=== PATIENT | female | born 1945 | race Caucasian/White ===

== ENCOUNTER 2019-10-24 12:31 | Inpatient (IN) ==
[2019-10-24] MEDS ORDERED: METOPROLOL TARTRATE 1 MG/ML VIAL IV STA (13:06)
--- NOTE | 2019-10-24 13:29 | XRay Report ---
XR chest 1V portable HISTORY: fall COMPARISON: None. FINDINGS: No pneumothorax. No pleural effusions. The heart is mildly enlarged. There is a calcified a nd mildly tortuous thoracic aorta. Calcified granulomas are noted. Left basilar linear densities favo r subsegmental atelectasis. Otherwise the lungs are clear. No evidence for pulmonary edema. Surgical clips within the neck base suggestive of prior thyroidectomy. IMPRESSION: Mild cardiomegaly. No acute process within the chest. ACT 112: Negative or not required by law. Electronically signed by: Tan Roberson M.D. 10/24/2019 1:27 PM
--- NOTE | 2019-10-24 13:45 | Emergency Department Note ---
Impression & Plan Fall, Abrasion of scalp without infection, Atrial fibrillation with rapid ventricular response ED Provider Note Provider: Krishna Solorzano MD DATE OF SERVICE: 10/24/2019 CHIEF COMPLAINT: Fall HISTORY OF PRESENT ILLNESS: Patient is a 74-year-old female history of atrial fibrillation on Xarelto status post fall in February with resultant rotator cuff injuries and back issues. Patient states she lives in the [place] area and had follow-up in the outpatient setting and kyphoplasty several months ago. Recent left rotator cuff repair. States was some delayed with the onset of atrial fibrillation that was new for her. She denies symptoms at that time. Patient states since then she is been on Xarelto taking a dose this morning. 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 Patient is presenting today via ambulance after a fall leaving the office. Evidently she states she was backing out of the door and tripped and fell. Denies any presyncopal symptoms or chest pain or shortness of breath. She denies a sensation of palpitations. Patient denies any significant new injury to her upper extremities. Patient states she took her Xarelto this morning as well as her metoprolol as she is supposed to do. Patient is not been to this facility before. REVIEW OF SYSTEMS: A total of 10 review of systems was obtained and negative except as stated above in the HPI. PAST MEDICAL HISTORY: As noted above MEDICATIONS: Reviewed home medications with the patient with significant include metoprolol and Xarelto SOCIAL HISTORY: Lives at home in [place]. Non-smoker. PHYSICAL EXAM: GENERAL: alert and oriented in no acute distress on stretcher Head: normocephalic with a small right parieto-occipital subcutaneous hematoma and small abrasion without laceration noted. Does have bandaging on the left maxillary area from skin resection earlier this morning without evidence of active bleeding. EYES: No injection, discharge or icterus. PERRL NECK: Trachea midline. Supple. ENT: Mucous membranes pink and moist. LUNGS: Airway patent. No retractions. Breath sounds clear with good air entry bilaterally. HEART: Irregular tachycardic rate and rhythm. No chest wall tenderness ABDOMEN: Soft and non-tender, without guarding or rebound. SKIN: Acyanotic, warm, dry, with few scattered contusions on the upper extremities. EXTREMITIES: Chronic stasis changes with trace edema of the lower extremities. Patient does have bandaging applied on the right hand as well as the left distal forearm. She states is from squamous cell removal earlier today and denies significant pain or tenderness on exam here. Neurovascular intact in the bilateral fingers. Patient has some Steri-Strips overlying healing wounds on her left shoulder from prior rotator cuff repair but denies significant tenderness in this area. NEUROLOGICAL: No focal deficits. No aphasia. No facial droop or slurred speech. Ambulatory. EKG: Atrial fibrillation with rapid ventricular response 133 bpm. There is no acute ST segment elevation noted. No priors are available for comparison at this time. CONTINUOUS CARDIAC MONITORING: was ordered and showed a heart rate of 131 bpm in atrial fibrillation with rapid ventricular response Patient's hypertension was referred to the hospitalist [facility] 15. HOSPITAL COURSE: 1256 Patient was first seen and H&P performed. 1440 Patient reassessed and updated. Patient was resting comfortably in bed. Still tachycardic and diltiazem is pending administration. 1523 patient heart rate persists to be elevated. Discussed with her plan and options at this point. Will discuss with the hospitalist. Patient's laboratory studies and imaging reviewed. Differential includes Fracture, dislocation, contusion, intra-abdominal, pneumothorax, intrathoracic, intracranial, neurologic, compartment syndrome, rhabdomyolysis, as well as other pathologies. IMPRESSION/MEDICAL DECISION MAKING: Patient presents after what sounds are mechanical fall today. Is on a blood thinner. Pictures of the head and neck as well as chest were obtained. She denies significant pain from this other than a small wound on the right side of her head. This is noted without depth or foreign body needing sutures or exploration. CTs were likely negative for acute pathology. Chest x-ray is unr emarkable. She denies injury to the upper extremities but is bandaged on her left upper face as well as the bilateral upper extremities. Without significant tenderness here discussed the patient will proceed with further imaging at this time. Basic labs were obtained she noted be in atrial fibrillation rapid ventricular spots. Some delay given difficult IV access. Was given 5 mg of IV metoprolol initially without significant change. Given this switch to some diltiazem and diltiazem drip. Patient is already anticoagulated Xarelto. EKG without significant ST changes and she denies any chest pain at this time. No significant leukocytosis. Some mild anemia is noted without prior baseline. Some macrocytosis is noted. No significant electrolyte abnormality noted. Creatinine does not appear significantly altered from what I would expect her baseline to be although no prior lab values are noted here. Troponin is undetectable. No transaminitis. TSH is low but free T4 reports as within normal limits. Patient's heart rate began to improve on the Cardizem drip however still persisted routinely to be elevated about 110 and this later did escalate some. Increase diltiazem drip.. Discussed with the patient. We will have the [facility] hospitalist evaluate for further inpatient care. DIAGNOSIS: Fall, atrial fibrillation with rapid ventricular response DISPOSITION: Hospitalist will evaluate Patient was agreeable with this plan. Critical Care I have personally spent 42 minutes of critical care time in the direct management of this patient. This includes bedside care, interpretation of diagnostic studies, and testing, discussion with consultants, patient, and family members, and other required patient management activities. These 42 minutes is in excess of all separately billable procedures. Past Med/Surg History Social History Smoking Status: Never smoker Feels Safe at Home: Yes Allergies Allergies Allergy/AdvReac Type Severity Reaction Status Date / Time No Known Allergies Allergy Unverified 10/24/19 14:38 Home Meds Home Medications Medication Instructions Recorded Confirmed calcium carbonate-vitamin D3 1 tab PO DAILY 10/24/19 10/24/19 [Calcium 600 + D(3)] docusate sodium 100 mg PO BID 10/24/19 10/24/19 ergocalciferol (vitamin D2) 1,250 mcg PO WK 10/24/19 10/24/19 gabapentin 900 mg PO HS 10/24/19 10/24/19 levothyroxine 75 mcg PO DAILY 10/24/19 10/24/19 lisinopril 20 mg PO DAILY 10/24/19 10/24/19 metoprolol tartrate 25 mg PO BID 10/24/19 10/24/19 oxycodone 5 mg PO Q4H PRN 10/24/19 10/24/19 pantoprazole [Protonix] 40 mg PO BID 10/24/19 10/24/19 trazodone 50 mg PO HS 10/24/19 10/24/19 vitamin A 16,000 unit PO DAILY 10/24/19 10/24/19 Results & Data (ED) Vital Signs Vital Signs - 24 hr 10/24/19 12:35 10/24/19 12:44 10/24/19 12:45 Temperature 36.9 C Temperature Source Oral Pulse Rate 128 H 146 H 128 H Pulse Rate from SpO2 Sensor 121 H 116 H 111 H Pulse Rhythm Regular Pulse Strength Normal Respiratory Rate 27 H 17 16 Respiratory Effort / Characteristics Non-Labored Spontaneous SOB on Exertion Respiratory Depth Normal Respiratory Pattern Regular Blood Pressure 145/90 H 145/90 H Blood Pressure Mean 97 108 Blood Pressure Position Lying Pulse Oximetry 97 97 97 Oxygen Delivery Method Room Air Sepsis Recent Fever Within 48 Hours No Sepsis New/Unexplained Change in Mental Status N/A Sepsis Action Taken by Nursing No Action Required 10/24/19 13:00 10/24/19 13:05 10/24/19 13:15 Temperature Temperature Source Pulse Rate 132 H 134 H Pulse Rate from SpO2 Sensor 125 H 121 H Pulse Rhythm Irregular Pulse Strength Respiratory Rate 20 17 Respiratory Effort / Characteristics Respiratory Depth Respiratory Pattern Blood Pressure Blood Pressure Mean Blood Pressure Position Pulse Oximetry 97 96 Oxygen Delivery Method Room Air Sepsis Recent Fever Within 48 Hours Sepsis New/Unexplained Change in Mental Status Sepsis Action Taken by Nursing 10/24/19 13:30 10/24/19 13:45 10/24/19 13:59 Temperature Temperature Source Pulse Rate 143 H 124 H 142 H Pulse Rate from SpO2 Sensor Pulse Rhythm Pulse Strength Respiratory Rate 18 20 Respiratory Effort / Characteristics Respiratory Depth Respiratory Pattern Blood Pressure 140/109 H Blood Pressure Mean Blood Pressure Position Pulse Oximetry Oxygen Delivery Method Sepsis Recent Fever Within 48 Hours Sepsis New/Unexplained Change in Mental Status Sepsis Action Taken by Nursing 10/24/19 14:00 10/24/19 14:01 10/24/19 14:08 Temperature Temperature Source Pulse Rate 151 H 135 H 130 H Pulse Rate from SpO2 Sensor Pulse Rhythm Pulse Strength Respiratory Rate 20 15 12 Respiratory Effort / Characteristics Respiratory Depth Respiratory Pattern Blood Pressure 140/109 H 138/118 H Blood Pressure Mean 113 123 Blood Pressure Position Pulse Oximetry Oxygen Delivery Method Sepsis Recent Fever Within 48 Hours Sepsis New/Unexplained Change in Mental Status Sepsis Action Taken by Nursing 10/24/19 14:15 10/24/19 14:38 10/24/19 14:45 Temperature Temperature Source Pulse Rate 123 H 126 H 126 H Pulse Rate from SpO2 Sensor 122 H 110 H Pulse Rhythm Pulse Strength Respiratory Rate 15 28 H 15 Respiratory Effort / Characteristics Respiratory Depth Respiratory Pattern Blood Pressure Blood Pressure Mean Blood Pressure Position Pulse Oximetry 94 97 Oxygen Delivery Method Sepsis Recent Fever Within 48 Hours Sepsis New/Unexplained Change in Mental Status Sepsis Action Taken by Nursing 10/24/19 14:52 10/24/19 15:00 10/24/19 15:15 Temperature Temperature Source Pulse Rate 127 H 105 H 108 H Pulse Rate from SpO2 Sensor 116 H 114 H 108 H Pulse Rhythm Pulse Strength Respiratory Rate 24 15 39 H Respiratory Effort / Characteristics Respiratory Depth Respiratory Pattern Blood Pressure 163/114 H 122/95 Blood Pressure Mean 119 101 Blood Pressure Position Pulse Oximetry 98 98 97 Oxygen Delivery Method Sepsis Recent Fever Within 48 Hours Sepsis New/Unexplained Change in Mental Status Sepsis Action Taken by Nursing 10/24/19 15:16 Temperature Temperature Source Pulse Rate 129 H Pulse Rate from SpO2 Sensor 121 H Pulse Rhythm Pulse Strength Respiratory Rate 17 Respiratory Effort / Characteristics Respiratory Depth Respiratory Pattern Blood Pressure 141/90 H Blood Pressure Mean 107 Blood Pressure Position Pulse Oximetry 98 Oxygen Delivery Method Sepsis Recent Fever Within 48 Hours Sepsis New/Unexplained Change in Mental Status Sepsis Action Taken by Nursing Laboratory Data Result diagrams: 10/24/19 13:30 10/24/19 13:30 Lab Results 10/24/19 10/24/19 10/24/19 Range/Units 13:30 13:30 13:30 WBC 8.36 (4.8-10.8) K/uL RBC 3.48 L (4.2-5.4) M/uL Hgb 11.5 L (12.0-16.0) g/dL Hct 37.0 (37-47) % MCV 106.3 H (80-100) fL MCH 33.0 (25-34) pg MCHC 31.1 L (32-36) g/dL RDW Std Deviation 67.3 H (36.4-46.3) fL RDW Coeff of Jayy 17.5 H (11.5-14.5) % Plt Count 207 (130-400) K/uL MPV 10.0 (7.4-10.4) fL Immature Gran % (Auto) 3.9 % Neut % (Auto) 82.8 % Lymph % (Auto) 7.3 % Mckenzie % (Auto) 5.9 % Eos % (Auto) 0.0 % Baso % (Auto) 0.1 % Neut # (Auto) 6.92 H (1.4-6.5) K/uL Lymph # (Auto) 0.61 L (1.2-3.4) K/uL Mckenzie # (Auto) 0.49 (0.11-0.59) K/uL Eos # (Auto) 0.00 (0-0.5) K/uL Baso # (Auto) 0.01 (0-0.2) K/uL Immature Gran # (Auto) 0.33 H (0.00-0.02) K/uL Absolute Nucleated RBC 0.06 H (0-0) K/uL Nucleated RBC % (auto) 0.7 % PT 11.1 (9.0-12.0) Seconds INR 1.1 (0.9-1.1) Sodium 142 (136-145) mmol/L Potassium 5.0 (3.5-5.1) mmol/L Chloride 108 H (98-107) mmol/L Carbon Dioxide 27 (21-32) mmol/L Anion Gap 7.0 (3-11) BUN 62 H (7-18) mg/dl Creatinine 1.16 (0.6-1.2) mg/dl Est Cr Clr Drug Dosing 43.7 ml/min Est GFR ( Amer) 54.1 Est GFR (Non-Af Amer) 46.7 BUN/Creatinine Ratio 53.0 H (10-20) Glucose 159 H (70-99) mg/dl Calcium 8.8 (8.5-10.1) mg/dl Magnesium 2.9 H (1.8-2.4) mg/dl Total Bilirubin 0.4 (0.2-1) mg/dl AST 16 (15-37) U/L ALT 30 (12-78) U/L Alkaline Phosphatase 48 (45-117) U/L Troponin I < 0.015 (0-0.045) ng/ml Total Protein 5.8 L (6.4-8.2) gm/dl Albumin 2.9 L (3.4-5.0) gm/dl Globulin 2.9 (2.5-4.0) gm/dl Albumin/Globulin Ratio 1.0 (0.9-2) TSH 0.109 L (0.300-4.500) uIu/ml Free T4 0.87 (0.8-1.6) ng/dl Administered Medications Diltiazem HCl 125 mg/ Dextrose 125 mls @ 5 mls/hr IV .Q24H UNIQUE; Protocol Stop: 11/23/19 14:29 Last Titration: 10/24/19 16:00 Dose: 10 mg/hr, 10 mls/hr Documented by: [id number] Cosigned by: [id number] Titration: 10/24/19 15:00 Dose: 7.5 mg/hr, 7.5 mls/hr Documented by: [id number] Cosigned by: [id number] Admin: 10/24/19 14:52 Dose: 5 mg/hr, 5 mls/hr Documented by: [id number] Cosigned by: [id number] Discontinued Medications Diltiazem HCl (Diltiazem Hcl 5 Mg/Ml 5 Ml Vial) 10 mg IV NOW STA Stop: 10/24/19 14:20 Last Admin: 10/24/19 14:54 Dose: 10 mg Documented by: [id number] Cosigned by: [id number] Metoprolol Tartrate (Metoprolol Tartrate 1 Mg/Ml Vial) 5 mg IV NOW STA Stop: 10/24/19 13:07 Last Admin: 10/24/19 13:59 Dose: 5 mg Documented by: [id number] Miscellaneous (Stat Iv Infusion Titration Per Protocol) 1 ea N/A NOW STA Stop: 10/24/19 14:20 Last Admin: 10/24/19 15:22 Dose: 1 ea Documented by: [id number] Discharge Plan Visit Data Chief Complaint: Fall Stated Complaint: fall ED Provider: Krishna Solorzano Discharge Problem: Fall, Abrasion of scalp without infection, Atrial fibrillation with rapid ventricular response Forms Stand Alone Forms: [facility] Prescriptions Prescriptions: No Action vitamin A 8,000 unit Capsule 16,000 unit PO DAILY RF: 0 trazodone 50 mg Tablet 50 mg PO HS RF: 0 lisinopril 20 mg Tablet 20 mg PO DAILY RF: 0 levothyroxine 75 mcg Tablet 75 mcg PO DAILY RF: 0 pantoprazole [Protonix] 40 mg Tablet,Delayed Release (Dr/Ec) 40 mg PO BID RF: 0 docusate sodium 100 mg Capsule 100 mg PO BID RF: 0 gabapentin 300 mg Capsule 900 mg PO HS RF: 0 ergocalciferol (vitamin D2) 1,250 mcg (50,000 unit) Capsule 1,250 mcg PO WK RF: 0 oxycodone 5 mg Tablet 5 mg PO Q4H PRN (Reason: Pain) RF: 0 metoprolol tartrate 25 mg Tablet 25 mg PO BID RF: 0 calcium carbonate-vitamin D3 [Calcium 600 + D(3)] 600 mg(1,500mg) -400 unit Tablet 1 tab PO DAILY RF: 0 Discharge Problem: Fall Qualifiers: Encounter type: initial encounter Qualified Code(s): W19.XXXA - Unspecified fall, initial encounter
[2019-10-24 14:06] LABS: Basophils # (auto) 0.01 K/uL (0-0.2); Basophils % (auto) 0.1 %; Hemoglobin 11.5 g/dL (12.0-16.0); Immature Granulocytes # (auto) 0.33 K/uL (0.00-0.02); Immature Granulocytes % (auto) 3.9 %; Lymphocytes # (auto) 0.61 K/uL (1.2-3.4); Lymphocytes % (auto) 7.3 %; Mean Corpuscular Hgb Conc 31.1 g/dL (32-36); Mean Corpuscular Volume 106.3 fL (80-100); Monocytes # (auto) 0.49 K/uL (0.11-0.59); Monocytes % (auto) 5.9 %; Neutrophils # (auto) 6.92 K/uL (1.4-6.5); Neutrophils % (auto) 82.8 %; Nucleated RBC # (auto) 0.06 K/uL (0-0); Nucleated RBC % (auto) 0.7 %; Platelet Count 207 K/uL (130-400); RDW Coefficient of Variation 17.5 % (11.5-14.5); RDW Standard Deviation 67.3 fL (36.4-46.3); Red Blood Count 3.48 M/uL (4.2-5.4); White Blood Count 8.36 K/uL (4.8-10.8)
[2019-10-24 14:16] LABS: INR 1.1 (0.9-1.1); Prothrombin Time 11.1 Seconds (9.0-12.0)
[2019-10-24] MEDS ORDERED: STAT IV Infusion **Titration per Protocol STA (14:19)
[2019-10-24] MEDS ORDERED: dilTIAZem HCl 5 MG/ML 5 ML VIAL IV STA (14:19)
[2019-10-24 14:25] LABS: Alanine Aminotransferase 30 U/L (12-78); Albumin Level 2.9 gm/dl (3.4-5.0); Aspartate Aminotransferase 16 U/L (15-37); Blood Urea Nitrogen 62 mg/dl (7-18); Calcium 8.8 mg/dl (8.5-10.1); Carbon Dioxide 27 mmol/L (21-32); Chloride 108 mmol/L (98-107); Creatinine Clr Calc Pharmacy 43.7 ml/min; Est GFR (African American) 54.1; Est GFR (Non-African American) 46.7; Glucose 159 mg/dl (70-99); Magnesium 2.9 mg/dl (1.8-2.4); Sodium 142 mmol/L (136-145)
--- NOTE | 2019-10-24 14:32 | CT Scan Report ---
CT SCAN OF THE BRAIN WITHOUT IV CONTRAST CLINICAL HISTORY: Fall. COMPARISON STUDY: No priors. TECHNIQUE: Unenhanced axial CT scan of the brain is performed from the vertex to the skull base. A do se lowering technique was utilized adhering to the principles of ALARA. CT DOSE: 638.56 mGycm FINDINGS: Brain parenchyma: There are age-related involutional changes noting mild to moderate subcortical and periventricular microangiopathic change. There is no hemorrhage, mass effect, or evidence of acute t erritorial ischemia by CT criteria. Sepulveda-white matter differentiation is preserved. No extra-axial fl uid collection is seen. Ventricles, sulci, cisterns: Prominent secondary to involutional change. Intracranial vasculature: There is atherosclerotic calcification of the cavernous carotid and vertebr al arteries. Calvarium: The skeletal structures are osteopenic. There is no depressed calvarial fracture. An 8 mm osteoma arises from the left frontal calvarium on image #19. Soft tissues: There are right temporal and right parietal scalp contusions. Sinuses and mastoids: A 1.1 cm osteoma is noted in the right frontal sinus. The visualized paranasal sinuses are otherwise clear. The mastoid air cells are well pneumatized. Orbits: The bony orbits are grossly intact. There are bilateral ocular lens implants. IMPRESSION: There is no hemorrhage, mass effect, or evidence of acute territorial ischemia by CT rajwinder morrison. ACT 112: Negative or not required by law. Electronically signed by: Eren Nuñez M.D. 10/24/2019 2:30 PM
[2019-10-24 14:35] LABS: Alkaline Phosphatase 48 U/L (45-117); Bilirubin,Total 0.4 mg/dl (0.2-1); Globulin 2.9 gm/dl (2.5-4.0); Thyroid Stimulating Hormone 0.109 uIu/ml (0.300-4.500); Total Protein 5.8 gm/dl (6.4-8.2); Troponin I < 0.015 ng/ml (0-0.045)
--- NOTE | 2019-10-24 14:36 | CT Scan Report ---
CT SCAN OF THE CERVICAL SPINE CLINICAL HISTORY: Fall. COMPARISON STUDY: No priors. TECHNIQUE: CT scan of the cervical spine is performed from the skull base to the upper thoracic spine . Images are reviewed in the axial, sagittal, and coronal planes. IV contrast was not administered fo r this examination. A dose lowering technique was utilized adhering to the principles of ALARA. CT DOSE: 446.95 mGycm FINDINGS: Skeletal structures: The skeletal structures are osteopenic. There is no evidence of fracture or subl uxation involving the cervical spine. Vertebral body height is maintained. There is minimal anterolis thesis at C4-C5. Alignment is otherwise preserved. There is straightening of the cervical lordosis. A nterior osteophytes are seen in the lower cervical region. The odontoid process and lateral masses ar e intact. The atlantoaxial articulation is preserved noting productive degenerative change. The spino us processes appear intact. Mild facet arthropathy is noted in the lower cervical region. Intervertebral discs: Moderate disc space narrowing is seen at C5-C6, C6-C7, and C7-T1 with associate d endplate sclerosis. Central canal: Grossly patent. Soft tissues: The prevertebral and paraspinous soft tissues are within normal limits. There is athero sclerotic calcification of the carotid bulbs. The thyroid gland is atrophic. Surgical clips are seen in the lower neck. Calvarium: The visualized calvarium at the skull base appears intact. Brain parenchyma: Partially visualized brain parenchyma the skull base is within normal limits. Sinuses and mastoids: The visualized paranasal sinuses are clear. The mastoid air cells are well pneu matized. Lung apices: Clear as visualized. IMPRESSION: 1. There is no evidence of fracture or subluxation involving the cervical spine. 2. Osteopenia and spondylotic change as above. ACT 112: Negative or not required by law. Electronically signed by: Eren Nuñez M.D. 10/24/2019 2:35 PM
[2019-10-24 14:50] LABS: T4 Free Thyroxine 0.87 ng/dl (0.8-1.6)
[2019-10-24] MEDS: dilTIAZem HCL 125 MG in DEXTROSE 5% 100 ML IV SCH ×2 (14:52→23:08)
--- NOTE | 2019-10-24 16:20 | Electrocardiogram Report ---
Test Reason : Blood Pressure : / mmHG Vent. Rate : 133 BPM Atrial Rate : 144 BPM P-R Int : 118 ms QRS Dur : 070 ms QT Int : 302 ms P-R-T Axes : 000 -23 -47 degrees QTc Int : 449 ms Atrial flutter with variable A-V block Low voltage QRS Poor R wave progression, consider anterior VT vs. lead placement vs. LVH Abnormal ECG No previous ECGs available Confirmed by Tommy Partida ([id number]) on 10/24/2019 4:20:28 PM Referred By: REFERRED SELF Confirmed By:Tommy Partida
[2019-10-24] MEDS ORDERED: ACETAMINOPHEN 500 MG TAB PO STA (16:59)
--- NOTE | 2019-10-24 17:00 | History & Physical Report ---
Date of Service October 24, 2019 Assessment & Plan (1) Atrial fibrillation with rapid ventricular response: Pt is 74 y/o F with PMH HTN, A-fib on Xarelto, autoimmune hepatitis, h/o parathyroid surgery presented to ER with c/o fall. Pt was at outpatient [facility] dermatology clinic today getting Mohs surgery to left face and left arm today. When she was leaving she states she was using her buttocks to open door and lost balance and fell hitting her head. Denies any LOC. Denies any dizziness, palpitations, CP, SOB or other symptoms prior to fall. In ER found to be in a-fib RVR. initial HR 130's. She was given Lopressor 5mg IV, Cardizem 10mg IV and on Cardizem drip with rates varying 108-140. Pt asymptomatic. No leukocytosis, magnesium: 2.9. Negative troponin. TSH: 0.1, Free T4: 0.87 Will admit to tele Continue Cardizem drip Continue home dose metoprolol for now as pt reports Continue Xarelto Echo Will plan to decrease levothyroxine dose since TSH: 0.1 Follows with [facility]. Will try to get copy of records from their office Cardiology consult CBC, BMP, magnesium labs in AM (2) Fall: (3) Abrasion of scalp without infection: Fall prior to arrival. Denies symptoms prior to fall. CT head and C-spine negative in ER No other reported injuries Tylenol prn Fall precautions (4) HTN (hypertension): Continue lisinopril, lasix, metoprolol (5) Squamous cell carcinoma: (6) Status post Mohs surgery: S/P excision to right hand on 10/21/19. S/P Mohs procedure to left arm and left face on 10/24/2019 Continue Keflex Continue outpatient follow up with dermatology (7) Hypothyroidism: Reported parathyroid surgery and h/o nodules. Pt reports benign biopsy. TSH: 0.1, Free T4: 0.87 Will plan to decrease levothyroxine dose since TSH: 0.1 (8) Autoimmune hepatitis: Follows with GI in [place] Continue prednisone, mercaptopurine DVT Prophylaxis -Xarelto Full Code as per discussion with pt Follows with Toney Mcghee PA-C in [place] for routine care Pt was seen and care coordinated with Dr Durham. See addendum History of Present Illness Chief Complaint: Fall Primary Care Provider: Toney Gastelum PA-C Pt is 74 y/o F with PMH HTN, A-fib on Xarelto, autoimmune hepatitis, h/o parathyroid surgery presented to ER with c/o fall. Pt was at outpatient [facility] dermatology clinic today getting Mohs surgery to left face and left arm today. When she was leaving she states she was using her buttocks to open door and lost balance and fell hitting her head. Denies any LOC. Denies any dizziness, palpitations, CP, SOB or other symptoms prior to fall. Pt was referred to ER secondary to falling and hitting her head and being on Xarelto. In ER pt was found to be in A-fib RVR. Pt reports h/o A-fib x 6-8 months that was found pre-op. She reports recent left rotator cuff repair and recent kyphoplasty and states had elevated heart rates. She reports h/o elevated HR while being in a residential for rehab and had her meds adjusted (unsure of what medications) and at that time had dizziness causing a fall. Pt states since her medications have been adjusted and hasn't had dizziness or palpitations and when has been at outpatient dr offices her HR have been controlled. Pt follows with [facility] and states most recently her HR have been below 100. She does report a h/o nodules -she thinks to her parathyroid glands and reports had biopsy and parathyroid surgery with reported benign biopsy. Her PCP noted her TSH to be low approx 1 month ago and per pt since her HR was controlled was g oing to repeat labs in 1-2 months. Has pain to left shoulder from recent rotator cuff repair, denies any increased pain or other extremity pain from fall. C/O abrasion to right scalp from fall that was initially bleeding but bleeding controlled at this time. Having mild KIM after fall. Reports chronic BLE edema, seems a little more swollen today. Reports took her lasix this morning. Denies fever/chills, diaphoresis, N/V/D/C, dizziness, syncope, vision changes, neck pain, CP, SOB, orthopnea, palpitations, cough, sore throat, choking, otalgia, rhinorrhea, abdominal pain, paresthesias, weakness, extremity weakness, rashes, urinary symptoms. In ER pt CT head and C-spine negative. Her initial HR 130's. She was given Lopressor 5mg IV, Cardizem 10mg IV and on Cardizem drip with rates varying 108- 140. Pt asymptomatic. Allergies Allergy/AdvReac Type Severity Reaction Status Date / Time No Known Allergies Allergy Unverified 10/24/19 14:38 Home Medications Home Medications Medication Instructions Recorded Confirmed Type calcium carbonate-vitamin D3 1 tab PO DAILY 10/24/19 10/24/19 History [Calcium 600 + D(3)] cephalexin [Keflex] 500 mg PO BID 10/24/19 10/24/19 History docusate sodium 100 mg PO BID 10/24/19 10/24/19 History ergocalciferol (vitamin D2) 1,250 mcg PO WK 10/24/19 10/24/19 History furosemide [Lasix] 40 mg PO DAILY 10/24/19 10/24/19 History gabapentin 900 mg PO HS 10/24/19 10/24/19 History levothyroxine 75 mcg PO DAILY 10/24/19 10/24/19 History lisinopril 10 mg PO DAILY 10/24/19 10/24/19 History mercaptopurine 25 mg PO DAILY 10/24/19 10/24/19 History metoprolol tartrate 25 mg PO BID 10/24/19 10/24/19 History oxycodone 5 mg PO Q4H PRN 10/24/19 10/24/19 History pantoprazole [Protonix] 40 mg PO BID 10/24/19 10/24/19 History polyethylene glycol 3350 [Miralax] 17 g PO DAILY PRN 10/24/19 10/24/19 History prednisone 20 mg PO DAILY 10/24/19 10/24/19 History rivaroxaban [Xarelto] 20 mg PO DAILY 10/24/19 10/24/19 History trazodone 50 mg PO HS 10/24/19 10/24/19 History vitamin A 16,000 unit PO DAILY 10/24/19 10/24/19 History Past Med/Surg History Medical History (Updated 10/24/19 @ 17:18 by Caren Rajan PA-C) Atrial fibrillation Autoimmune hepatitis HTN (hypertension) Hypothyroidism Squamous cell carcinoma Surgical History (Updated 10/24/19 @ 17:06 by Caren Rajan PA-C) H/O kyphoplasty H/O repair of rotator cuff History of appendectomy History of hysterectomy History of parathyroid surgery Status post Mohs surgery 10/24/2019 - face, left arm Family History (Updated 10/24/19 @ 17:12 by Caren Rajan PA-C) Mother Abdominal aortic aneurysm Father Heart disease Other Lupus Thyroid disease Social History (Updated 10/24/19 @ 17:12 by Caren Rajan PA-C) Smoking Status: Never smoker Hx Alcohol Use: No Hx Substance Use: No Feels Safe at Home: Yes Review of Systems Review of Systems: All systems reviewed & are unremarkable except as noted in HPI & below Physical Exam Physical Exam: General: no distress, obese Head: normocephalic, right lateral scalp with abrasion without active bleeding Eyes: PERRL, EOM's intact, conjunctiva non-injected, anicteric ENT: normal inspection external ears, nose, mucous membranes moist Neck: supple, trachea midline, non-tender, ROM intact Lungs: clear, no respiratory distress, no wheezing/rhonchi/rales CV:Irregularly irregular, rates 110-136, no murmur appreciated, 2+ pretibial edema Abd: normal BS, soft, non-tender Ext: no cyanosis, no calf tenderness Neuro: A&O x 3, no focal deficits noted, normal affect Skin: warm, dry; left face with bulky dressing in place from Mohs procedure today, left arm with dressing in place from Mohs procedure today, left hand with JAIDA wrap in place from skin excision several days ago, JAIDA wrap has dried blood noted on outside of dressing from her scalp bleeding Results & Data Results & Data ([facility]) Vital Signs (Past 12 Hours) Vital Signs Temp Pulse Resp BP Pulse Ox 10/24/19 15:16 129 H 17 141/90 H 98 10/24/19 15:15 108 H 39 H 97 10/24/19 15:00 105 H 15 122/95 98 10/24/19 14:52 127 H 24 163/114 H 98 10/24/19 14:45 126 H 15 97 10/24/19 14:38 126 H 28 H 94 10/24/19 14:15 123 H 15 10/24/19 14:08 130 H 12 138/118 H 10/24/19 14:01 135 H 15 140/109 H 10/24/19 14:00 151 H 20 10/24/19 13:59 142 H 140/109 H 10/24/19 13:45 124 H 20 10/24/19 13:30 143 H 18 10/24/19 13:15 134 H 17 96 10/24/19 13:00 132 H 20 97 10/24/19 12:45 128 H 16 97 10/24/19 12:44 36.9 C 146 H 17 145/90 H 97 10/24/19 12:35 128 H 27 H 145/90 H 97 Laboratory Results Short CBC 10/24/19 10/24/19 Range/Units 13:30 13:30 WBC 8.36 (4.8-10.8) K/uL Hgb 11.5 L (12.0-16.0) g/dL Hct 37.0 (37-47) % Plt Count 207 (130-400) K/uL BUN 62 H (7-18) mg/dl BMP 10/24/19 13:30 Sodium 142 Potassium 5.0 Chloride 108 H Carbon Dioxide 27 BUN 62 H Creatinine 1.16 Glucose 159 H Calcium 8.8 Cardiac Enzymes 10/24/19 Range/Units 13:30 Troponin I < 0.015 (0-0.045) ng/ml Liver Function 10/24/19 Range/Units 13:30 Total Bilirubin 0.4 (0.2-1) mg/dl AST 16 (15-37) U/L ALT 30 (12-78) U/L Alkaline Phosphatase 48 (45-117) U/L Albumin 2.9 L (3.4-5.0) gm/dl Diagnostic Findings CT HEAD: IMPRESSION: There is no hemorrhage, mass effect, or evidence of acute territorial ischemia by CT criteria. C-SPINE: IMPRESSION: 1. There is no evidence of fracture or subluxation involving the cervical spine. 2. Osteopenia and spondylotic change as above. CXR: IMPRESSION: Mild cardiomegaly. No acute process within the chest. ECG Rate (beats per minute): 133 Additional Comments: atrial fibrillation/flutter Supervising Physician Co-Signing Physician Notes Attending Addendum: care coordinated with CHARLENE Burnette please refer to her notes for full details, I agree with her notes patient seen and examined, records reviewed by myself as well on exam, patient seen sitting up in bed, comfortable appears tired but pleasant, oriented x 3 denies chest pain, dyspnea, palpitations HR 120s on Diltiazem drip reports mild pain on the area of small laceration, right posterior/parietal region reports increased pedal edema no other symptoms VS noted and reviewed oriented x 3, not in distress, speaks in sentences with no effort nor accessory muscle use head: small laceration right posterior/parietal region- no active bleeding heavy dressing on the left face- no signs of bleeding mild tachycardia, irregularly irregular rhythm, no murmurs clear breath sounds bilaterally non distended, soft, nontender (+) bipedal edema, erythema, warmth (+) dressing on the right hand dorsum- no bleeding no neuro deficits WBC 8.3 Hg 11.5 Crea 1.1 INR 1.1 EKG: A fib in RVR CT head: IMPRESSION: There is no hemorrhage, mass effect, or evidence of acute territorial ischemia by CT criteria. ASSESSMENT AND PLAN 74 year old female with chronic A fib on Xarelto, HTN, Squamous Cell CA, Autoimmune Hepatitis, presenting with mechanical fall, found to be in A fib RVR. A FIB IN RVR, CHRONIC A FIB ON XARELTO currently on Diltiazem Drip continue usual Metoprolol tartrate 25mg BID continue usual Xarelto update Echo Cardio consult HYPOTHYROIDISM History of Hyperparathyroidism, s/p Resection of Parathyroid Glands; Thyroid Gland intact as per patient as per patient Levothyroxine increased 2 months ago during hospitalization for rotator cuff tear, because thyroid function was found to be low currently on Levothyroxine 75mcg today, TSH low--> 0.1 , T4 normal 0.87--> Subclinical Hyperthyroidism contributing to Afib RVR? decrease Levothyroxine from 75 to 50mcg PEDAL EDEMA usually on Lasix 40mg po daily check Echo additional Lasix 20mg one dose ordered other diagnoses and plan of care as per CHARLENE Dudley notes Breezy Durham MD (1) Fall Encounter type: initial encounter Qualified Code(s): W19.XXXA - Unspecified fall, initial encounter
[2019-10-24] MEDS ORDERED: ACETAMINOPHEN 325 MG TAB PO PRN (18:58)
[2019-10-24] MEDS ORDERED: FUROSEMIDE 20 MG TAB PO ONE (19:45)
[2019-10-24] MEDS: cephALEXin 500 MG CAP PO SCH (20:28)
[2019-10-24] MEDS: TRAZODONE HCL 50 MG TAB PO SCH (20:28)
[2019-10-24] MEDS: PANTOprazole 40 MG TAB PO SCH (20:28)
[2019-10-24] MEDS: METOPROLOL TARTRATE 25 MG TAB PO SCH (20:28)
[2019-10-24] MEDS: GABAPENTIN 300 MG CAP PO SCH (20:29)
[2019-10-24] MEDS: DOCUSATE SODIUM 100 MG CAP PO SCH (20:30)
[2019-10-24] MEDS: OXYCODONE HCL IR 5 MG TAB (IMMEDIATE RELEASE) PO PRN (21:40)
[2019-10-25] MEDS: LEVOTHYROXINE SODIUM 50 MCG TABLET PO SCH (06:10)
[2019-10-25] MEDS: OXYCODONE HCL IR 5 MG TAB (IMMEDIATE RELEASE) PO PRN ×2 (06:11→19:24)
[2019-10-25] MEDS: DOCUSATE SODIUM 100 MG CAP PO SCH ×2 (07:54→19:35)
[2019-10-25] MEDS: METOPROLOL TARTRATE 25 MG TAB PO SCH ×2 (07:54→20:36)
[2019-10-25] MEDS: RIVAROXABAN 20 MG TAB PO SCH (07:55)
[2019-10-25] MEDS: predniSONE 20 MG TAB PO SCH (07:55)
[2019-10-25] MEDS: PANTOprazole 40 MG TAB PO SCH ×2 (07:55→19:35)
[2019-10-25] MEDS: lisinopriL 10 MG TAB PO SCH (07:55)
[2019-10-25] MEDS: FUROSEMIDE 40 MG TAB PO SCH (07:55)
[2019-10-25] MEDS: cephALEXin 500 MG CAP PO SCH ×2 (07:55→19:34)
[2019-10-25] MEDS: CALCIUM 600MG + VIT D 400 IU TAB PO SCH (07:56)
--- NOTE | 2019-10-25 08:38 | Electrocardiogram Report ---
Test Reason : Blood Pressure : / mmHG Vent. Rate : 112 BPM Atrial Rate : 000 BPM P-R Int : 000 ms QRS Dur : 078 ms QT Int : 322 ms P-R-T Axes : 000 -16 -25 degrees QTc Int : 439 ms Atrial flutter with variable A-V block Poor R wave progression, consider anterior ME vs. lead placement vs. LVH Abnormal ECG When compared with ECG of 24-OCT-2019 13:26, No significant change Confirmed by Tommy Partida ([id number]) on 10/25/2019 8:38:21 AM Referred By: REFERRED SELF Confirmed By:Tommy Partida
[2019-10-25 08:58] LABS: BUN Creatinine Ratio 54.4 (10-20); Calcium 8.5 mg/dl (8.5-10.1); Creatinine Clr Calc Pharmacy 50.1 ml/min; Est GFR (African American) 62.5; Est GFR (Non-African American) 53.9; Potassium 4.6 mmol/L (3.5-5.1)
[2019-10-25] MEDS ORDERED: MERCAPTOPURINE 50 MG TAB PO SCH (09:00)
[2019-10-25] MEDS: MERCAPTOPURINE 50 MG TAB PO SCH (10:47)
--- NOTE | 2019-10-25 10:52 | XRay Report ---
XR knee RT 3V CLINICAL HISTORY: Knee pain, Fall COMPARISON: None FINDINGS: Alignment of the right knee is anatomic. No fracture or joint effusion is noted. There is soft tissue swelling. There is moderate medial compartment osteoarthritis. Chondrocalcinosis within t he menisci. No osseous lesion is noted. IMPRESSION: 1. No acute fracture or joint effusion of the right knee. 2. Moderate osteoarthritis of the medial compartment. Chondrocalcinosis within the menisci. 3. Soft tissue swelling. ACT 112: Negative or not required by law. Electronically signed by: Mickey Ragland M.D. 10/25/2019 10:51 AM
[2019-10-25] MEDS ORDERED: dilTIAZem HCL 180 MG CAPCR PO SCH (11:15)
[2019-10-25] MEDS ORDERED: SODIUM CHLORIDE 0.9% 1000ML 1,000 ML IV SCH (14:00)
[2019-10-25] MEDS ORDERED: DIGOXIN 250 MCG in SYRINGE 9 ML IV ONE (14:15)
[2019-10-25] MEDS ORDERED: dilTIAZem HCL 30 MG TAB PO ONE (15:32)
--- NOTE | 2019-10-25 16:32 | Hospitalist Progress Note ---
Date of Service October 25, 2019 Assessment & Plan (1) Atrial fibrillation with rapid ventricular response: Patient is a 74 yr female with H/O HTN, A-fib on Xarelto, autoimmune hepatitis, h/o parathyroid surgery presented with H/O fall and was found to be in Afib RVR. Afib RVR --CXR:Mild cardiomegaly. No acute process within the chest. --ECHO:Moderate Concentric LVH, EF:60-65%. No segmental left ventricular wall motion abnormality. Left atrium enlargement suggest diastolic dysfunction. Reduced RV systolic function. Mild MR. Mild TR. Severe biatrial enlargement. PA systolic pressure of 30 mmHg. --TSH:0.109, Normal Free T4 On Xarelto for anticoagulation Continue Cardizem, Metoprolol Received a dose of Digoxin Appreciate Cardiology Input. Monitor electrolytes and replace as needed Levothyroxine dose decreased to 50 mcg (From 75 mcg) (2) Fall: (3) Abrasion of scalp without infection: Fall Likely Mechanical CT head:There is no hemorrhage, mass effect, or evidence of acute territorial ischemia by CT criteria. Neck CT:There is no evidence of fracture or subluxation involving the cervical spine. Osteopenia and spondylotic change as above. Right Knee X ray: No acute fracture or joint effusion of the right knee. Moder ate osteoarthritis of the medial compartment. Chondrocalcinosis within the menisci. Soft tissue swelling. --PT/OT eval Fall Precautions Conservative management for knee pain (4) HTN (hypertension): Continue lisinopril, lasix, metoprolol Monitor (5) Squamous cell carcinoma: (6) Status post Mohs surgery: S/P excision to right hand on 10/21/19. S/P Mohs procedure to left arm and left face on 10/24/2019 Continue Keflex Continue outpatient follow up with dermatology (7) Hypothyroidism: H/O Hyperparathyroidism S/P Resection of Parathyroid Glands Was recently increased on Levothyroxine 2 months ago during hospitalization for rotator cuff tear TSH: 0.1, Free T4: 0.87 Decrease Levothyroxine from 75 to 50mcg Will need repeat thyroid function test as outpatient (8) Autoimmune hepatitis: Follows with GI in [place] Continue prednisone, mercaptopurine DVT Px On Xarelto Code Status Full Code Disposition Expect to discharge home when medically stable Admission and Anticipated Discharge Date Admission Date: October 24, 2019 Subjective Patient is seen and examined at bedside Complains of pain at surgical site on UE Also reports right knee pain from fall Remains in Afib RVR Denies chest pain, SOB, dizziness, nausea, abd pain Discussed with Cardiology today Offers no other complaints. Review of Systems Review of Systems: All systems reviewed & are unremarkable except as noted in HPI & below Physical Exam Physical Exam: Physical Exam: Vitals signs as noted above General Appearance:Moderately built and nourished, no apparent distress, Chronic Ill appearing Head: normocephalic, Atraumatic Eyes: normal inspection, EOMI Neck: supple, Trachea midline Respiratory/Chest: Normal breath sounds, CTA Cardiovascular: Irregularly Irregular, No murmur, +Tachycardia Abdomen/GI:Soft, Non tender, Bowel sounds present Extremities/Musculoskelatal:normal inspection, Chronic Venous stasis changes, 1- 2+ B/L LE edema B/L UE, left facial surgical dressing Neurologic/Psych:AAOX3, grossly no focal neurological deficits Skin: normal color, warm Results & Data Results & [facility] ([facility]) Vital Signs (Past 12 Hours) Vital Signs Temp Pulse Pulse Resp BP Pulse Ox 10/25/19 15:38 36.6 C 141 H 19 149/94 H 95 10/25/19 14:31 131 H 10/25/19 11:32 36.6 C 114 H 18 96/71 L 96 10/25/19 08:00 36.8 C 105 H 18 115/70 95 Laboratory Results [facility] 10/25/19 06:58 Sodium 143 Potassium 4.6 Chloride 108 H Carbon Dioxide 29 BUN 56 H Creatinine 1.03 Glucose 87 Calcium 8.5 Cardiac Enzymes 10/24/19 Range/Units 19:27 Troponin I < 0.015 (0-0.045) ng/ml (1) Fall Encounter type: initial encounter Qualified Code(s): W19.XXXA - Unspecified fall, initial encounter
--- NOTE | 2019-10-25 16:33 | Cardiology Consultation ---
Date of Consultation October 25, 2019 Assessment & Plan (1) Atrial fibrillation with rapid ventricular response: (2) HTN (hypertension): (3) Squamous cell carcinoma: (4) Autoimmune hepatitis: (5) Status post Mohs surgery: Luckily she did not suffer any significant hemorrhage after her fall. Her heart rates are significantly elevated with a blood pressure relatively on the low side. At this point we will start her on Cardizem CD 180 mg p.o. daily for further rate control. She will be continued on outpatient doses of Xarelto and metoprolol. Given the fact that Xarelto is very expensive for her may consider switching to Eliquis if it is more cost efficient, will defer to her primary hvac project manager as an outpatient. Her rates have remained elevated despite receiving the Cardizem CD so I have given her a liter of fluid, digoxin IV and short acting Cardizem 30 mg p.o. x1. We will continue to follow her rates overnight and hopefully with this medication adjustments that will become controlled and she will be discharged in the a.m. History of Present Illness Reason for Consultation: afib with rvr Requesting Physician: Dr. Bennett Attending Physician: Miguel Angel Bennett MD History of Present Illness It was my pleasure to see Mrs. Calderón in consultation today October 25, 2019. She is a very pleasant 74-year-old woman who routinely follows with a hvac project manager in [place] for her recently discovered asymptomatic atrial fibrillation. She had Mohs surgery performed at [facility] on the , unfortunately, while leaving the clinic she tripped opening the door and fell. Given that she is on chronic anticoagulation she was directed to the emergency department. Upon arrival her initial work-up was unremarkable except for atrial fibrillation with rapid ventricular response and she was admitted to telemetry. She is currently maintained on metoprolol and Xarelto as an outpatient, she does find the Xarelto very cost prohibitive however. She states that she was initially diagnosed with A. fib during preop for her Mohs surgery. She is always been completely asymptomatic from it. Allergies Allergy/AdvReac Type Severity Reaction Status Date / Time No Known Allergies Allergy Unverified 10/24/19 14:38 Home Medications Home Medications Medication Instructions Recorded Confirmed Type calcium carbonate-vitamin D3 1 tab PO DAILY 10/24/19 10/24/19 History [Calcium 600 + D(3)] cephalexin [Keflex] 500 mg PO BID 10/24/19 10/24/19 History docusate sodium 100 mg PO BID 10/24/19 10/24/19 History ergocalciferol (vitamin D2) 1,250 mcg PO WK 10/24/19 10/24/19 History furosemide [Lasix] 40 mg PO DAILY 10/24/19 10/24/19 History gabapentin 900 mg PO HS 10/24/19 10/24/19 History levothyroxine 75 mcg PO DAILY 10/24/19 10/24/19 History lisinopril 10 mg PO DAILY 10/24/19 10/24/19 History mercaptopurine 50 mg PO DAILY 10/24/19 10/25/19 History metoprolol tartrate 25 mg PO BID 10/24/19 10/24/19 History oxycodone 5 mg PO Q4H PRN 10/24/19 10/24/19 History pantoprazole [Protonix] 40 mg PO BID 10/24/19 10/24/19 History polyethylene glycol 3350 [Miralax] 17 g PO DAILY PRN 10/24/19 10/24/19 History prednisone 20 mg PO DAILY 10/24/19 10/24/19 History rivaroxaban [Xarelto] 20 mg PO DAILY 10/24/19 10/24/19 History trazodone 50 mg PO HS 10/24/19 10/24/19 History vitamin A 16,000 unit PO DAILY 10/24/19 10/24/19 History Patient History Medical History Atrial fibrillation Autoimmune hepatitis HTN (hypertension) Hypothyroidism Squamous cell carcinoma Surgical History H/O kyphoplasty H/O repair of rotator cuff History of appendectomy History of hysterectomy History of parathyroid surgery Status post Mohs surgery 10/24/2019 - face, left arm Family History Mother Abdominal aortic aneurysm Father Heart disease Other Lupus Thyroid disease Social History Smoking Status: Never smoker Hx Alcohol Use: No Hx Substance Use: No Preferred Language: Divehi Communication Ability: Effective Beliefs That Will Affect Care: None marital status: / Current Living Situation: Alone Other Information That Helps Us Care for You: No Feels Safe at Home: Yes Safety Concerns: Feels Safe At This Time Review of Systems Review of Systems: All systems reviewed & are unremarkable except as noted in HPI & below Physical Exam Physical Exam: General: Awake, alert and oriented x 3. No acute distress. HEENT: Normocephalic, atraumatic. Pupils equal, round and reactive to light and accommodation. Extraocular muscles are intact. Anicteric sclera. Moist mucous membranes. Neck: No JVD. No bruit. Cardiovascular: irregularly irregular, unable to appreciate murmur, rub or gallop. Pulmonary: Clear to auscultation bilaterally. No rales, rhonchi, or wheezing. Abdomen: Bowel sounds x 4, soft. No rebound, guarding or tenderness. No organomegaly. Extremities: No clubbing, cyanosis or edema. +2 pedal pulses bilaterally. Skin: Warm and dry. Results & Data ([facility]) Vital Signs (Past 12 Hours) Vital Signs Temp Pulse Pulse Resp BP Pulse Ox 10/25/19 15:38 36.6 C 141 H 19 149/94 H 95 10/25/19 14:31 131 H 10/25/19 11:32 36.6 C 114 H 18 96/71 L 96 10/25/19 08:00 36.8 C 105 H 18 115/70 95 Laboratory Results Laboratory Results - last 24 hr 10/24/19 10/25/19 10/25/19 19:27 06:57 06:58 Sodium 143 Potassium 4.6 Chloride 108 H Carbon Dioxide 29 Anion Gap 6.0 BUN 56 H Creatinine 1.03 Est Cr Clr Drug Dosing 50.1 Est GFR ( Amer) 62.5 Est GFR (Non-Af Amer) 53.9 BUN/Creatinine Ratio 54.4 H Glucose 87 Calcium 8.5 Magnesium 2.8 H Troponin I < 0.015 Medications Administered Current Inpatient Medications Acetaminophen (Acetaminophen 325 Mg Tab) 650 mg PO Q4H PRN PRN Reason: Pain or Fever Stop: 11/23/19 18:57 Cephalexin HCl (Cephalexin 500 Mg Cap) 500 mg PO BID UNIQUE; Protocol Stop: 10/31/19 20:59 Last Admin: 10/25/19 07:55 Dose: 500 mg Documented by: Diltiazem HCl (Diltiazem Hcl 180 Mg Capcr) 180 mg PO QAM [facility] Stop: 11/24/19 11:14 Last Admin: 10/25/19 11:52 Dose: 180 mg Documented by: Docusate Sodium (Docusate Sodium 100 Mg Cap) 100 mg PO BID UNIQUE Stop: 11/23/19 20:59 Last Admin: 10/25/19 07:54 Dose: 100 mg Documented by: Furosemide (Furosemide 40 Mg Tab) 40 mg PO DAILY UNIQUE Stop: 11/24/19 08:59 Last Admin: 10/25/19 07:55 Dose: 40 mg Documented by: Gabapentin (Gabapentin 300 Mg Cap) 900 mg PO HS UNIQUE Stop: 11/23/19 20:59 Last Admin: 10/24/19 20:29 Dose: 900 mg Documented by: Diltiazem HCl 125 mg/ Dextrose 125 mls @ 0 mls/hr IV .Q0M [facility]; Protocol Stop: 11/23/19 14:29 Last Titration: 10/25/19 05:15 Dose: 0 mg/hr, 0 mls/hr Documented by: Sodium Chloride (Nss 1000ml) 1,000 mls @ 150 mls/hr IV .Q6H40M [facility] Stop: 10/25/19 20:39 Last Admin: 10/25/19 14:32 Dose: 150 mls/hr Documented by: Levothyroxine Sodium (Levothyroxine Sodium 50 Mcg Tablet) 50 mcg PO DAILYBB [facility] Stop: 11/24/19 06:29 Last Admin: 10/25/19 06:10 Dose: 50 mcg Documented by: Lisinopril (Lisinopril 10 Mg Tab) 10 mg PO DAILY UNIQUE Stop: 11/24/19 08:59 Last Admin: 10/25/19 07:55 Dose: 10 mg Documented by: Mercaptopurine (Mercaptopurine 50 Mg Tab) 50 mg PO DAILY [facility] Stop: 11/24/19 08:59 Last Admin: 10/25/19 10:47 Dose: 25 mg Documented by: Metoprolol Tartrate (Metoprolol Tartrate 25 Mg Tab) 25 mg PO BID [facility] Stop: 11/23/19 20:59 Last Admin: 10/25/19 07:54 Dose: 25 mg Documented by: Multivitamins/Minerals (Calcium 600mg + Vit D 400 Iu Tab) 1 tab PO DAILY UNIQUE Stop: 11/24/19 08:59 Last Admin: 10/25/19 07:56 Dose: 1 tab Documented by: Oxycodone HCl (Oxycodone Hcl Ir 5 Mg Tab (Immediate Release)) 5 mg PO Q4H PRN PRN Reason: Pain Stop: 11/07/19 19:22 Last Admin: 10/25/19 06:11 Dose: 5 mg Documented by: Pantoprazole Sodium (Pantoprazole 40 Mg Tab) 40 mg PO BID UNIQUE Stop: 11/23/19 20:59 Last Admin: 10/25/19 07:55 Dose: 40 mg Documented by: Polyethylene Glycol (Polyethylene (Miralax) 17 Gm Pack) 17 gm PO DAILY PRN PRN Reason: Constipation Stop: 11/23/19 18:57 Prednisone (Prednisone 20 Mg Tab) 20 mg PO DAILY UNIQUE Stop: 11/24/19 08:59 Last Admin: 10/25/19 07:55 Dose: 20 mg Documented by: Rivaroxaban (Rivaroxaban 20 Mg Tab) 20 mg PO DAILY UNIQUE Stop: 11/24/19 08:59 Last Admin: 10/25/19 07:55 Dose: 20 mg Documented by: Trazodone HCl (Trazodone Hcl 50 Mg Tab) 50 mg PO HS UNIQUE Stop: 11/23/19 20:59 Last Admin: 10/24/19 20:28 Dose: 50 mg Documented by:
[2019-10-25] MEDS: GABAPENTIN 300 MG CAP PO SCH (19:34)
[2019-10-25] MEDS: TRAZODONE HCL 50 MG TAB PO SCH (19:35)
[2019-10-26 03:11] LABS: Partial Thromboplastin Ratio 0.8; Partial Thromboplastin Time 22.2 Seconds (21.0-31.0)
[2019-10-26 03:16] LABS: BUN Creatinine Ratio 47.8 (10-20); Basophils # (auto) 0.03 K/uL (0-0.2); Basophils % (auto) 0.4 %; Calcium 8.1 mg/dl (8.5-10.1); Creatinine Clr Calc Pharmacy 53.8 ml/min; Eosinophils # (auto) 0.02 K/uL (0-0.5); Eosinophils % (auto) 0.3 %; Est GFR (Non-African American) 58.7; Hematocrit (blood only) 32.3 % (37-47); Hemoglobin 9.8 g/dL (12.0-16.0); Immature Granulocytes # (auto) 0.29 K/uL (0.00-0.02); Immature Granulocytes % (auto) 3.8 %; Lymphocytes # (auto) 2.27 K/uL (1.2-3.4); Lymphocytes % (auto) 29.6 %; Magnesium 2.5 mg/dl (1.8-2.4); Mean Corpuscular Hemoglobin 32.9 pg (25-34); Mean Corpuscular Hgb Conc 30.3 g/dL (32-36); Mean Corpuscular Volume 108.4 fL (80-100); Monocytes # (auto) 0.78 K/uL (0.11-0.59); Monocytes % (auto) 10.2 %; Neutrophils # (auto) 4.28 K/uL (1.4-6.5); Neutrophils % (auto) 55.7 %; Nucleated RBC # (auto) 0.14 K/uL (0-0); Nucleated RBC % (auto) 1.8 %; Platelet Count 195 K/uL (130-400); Potassium 4.4 mmol/L (3.5-5.1); RDW Coefficient of Variation 17.5 % (11.5-14.5); RDW Standard Deviation 68.9 fL (36.4-46.3); Red Blood Count 2.98 M/uL (4.2-5.4); White Blood Count 7.67 K/uL (4.8-10.8)
--- NOTE | 2019-10-26 03:18 | Communication Note ---
Date of Service: October 26, 2019 Notified by RN of dried blood noted on patient's underwear, concern for hematuria. Patient without pain symptoms, fever, chills. AP Possible hematuria Check UA CBC now Hold Xarelto until CBC back. Will relay to AM provider.
[2019-10-26] MEDS ORDERED: SODIUM CHLORIDE 0.9% 500 ML IV ONE (03:42)
[2019-10-26] MEDS ORDERED: METOPROLOL TARTRATE 25 MG TAB PO SCH (03:45)
[2019-10-26] MEDS ORDERED: DIGOXIN 250 MCG in SYRINGE 9 ML IV ONE (04:00)
[2019-10-26] MEDS: dilTIAZem HCL 125 MG in DEXTROSE 5% 100 ML IV SCH (04:44)
[2019-10-26] MEDS: LEVOTHYROXINE SODIUM 50 MCG TABLET PO SCH (05:21)
[2019-10-26] MEDS: OXYCODONE HCL IR 5 MG TAB (IMMEDIATE RELEASE) PO PRN ×4 (06:11→20:06)
[2019-10-26 06:32] LABS: Appearance Urine Clear (Clear); Bacteria Urine Automated Negative (Negative); Bilirubin Urine Negative (Negative); Blood Urine Negative (Negative); Cast Urine Automated 0 /lpf (0-5); Color Urine Yellow; Glucose Urine UA Negative (Negative); Ketones Urine Negative (Negative); Leukocyte Esterase Urine Trace (Negative); Nitrite Urine Negative (Negative); Protein Urine Negative (Negative); RBC Urine Automated 0-4 /hpf (0-4); Specific Gravity Urine 1.023 (1.000-1.030); Urobilinogen Urine Negative (Negative); pH Urine 5.5 (4.5-7.5)
[2019-10-26] MEDS: dilTIAZem HCL 180 MG CAPCR PO SCH (07:10)
[2019-10-26 08:16] LABS: Hematocrit (blood only) 33.7 % (37-47); Hemoglobin 10.5 g/dL (12.0-16.0)
[2019-10-26] MEDS: MERCAPTOPURINE 50 MG TAB PO SCH (08:38)
[2019-10-26] MEDS: FUROSEMIDE 40 MG TAB PO SCH (08:39)
[2019-10-26] MEDS: lisinopriL 10 MG TAB PO SCH (08:39)
[2019-10-26] MEDS: CALCIUM 600MG + VIT D 400 IU TAB PO SCH (08:39)
[2019-10-26] MEDS: DOCUSATE SODIUM 100 MG CAP PO SCH ×2 (08:40→20:06)
[2019-10-26] MEDS: predniSONE 20 MG TAB PO SCH (08:40)
[2019-10-26] MEDS: cephALEXin 500 MG CAP PO SCH ×2 (08:40→20:06)
[2019-10-26] MEDS: PANTOprazole 40 MG TAB PO SCH ×2 (08:41→20:06)
[2019-10-26] MEDS: ACETAMINOPHEN 1,000 MG/100 ML VIAL IV PRN ×2 (09:11→16:20)
[2019-10-26] MEDS ORDERED: METOPROLOL TARTRATE 25 MG TAB PO STA (11:25)
--- NOTE | 2019-10-26 11:30 | Cardiology Progress Note ---
Date of Service October 26, 2019 Assessment & Plan (1) Atrial fibrillation with rapid ventricular response: (2) HTN (hypertension): (3) Squamous cell carcinoma: (4) Autoimmune hepatitis: (5) Status post Mohs surgery: The patient continues to have atrial fibrillation with RVR. I am going to increase her metoprolol to 50 mg twice daily. Continue the Cardizem at its current dose. Otherwise the patient is stable. Admission and Anticipated Discharge Date Admission Date: October 24, 2019 Subjective The patient is sitting in a chair and appears to be comfortable. Review of Systems Review of Systems: All systems reviewed & are unremarkable except as noted in HPI & below Nothing additional to add. Physical Exam Physical Exam: General: no acute distress and stated age Head: normocephalic, no masses, lesions, tenderness or abnormalities Eyes: conjunctiva are pink and non-injected, sclera clear Neck: supple, no adenopathy, no bruits, normal jugular venous pulse, no hep atojugular reflux Chest: normal shape and normal respiratory effort Lungs: clear to auscultation and percussion Cardiac Exam: - irregular rate & rhythm, no murmurs gallops or rubs - normal S1, normal S2 Pulses: 2(+) throughout Abdomen: abdomen soft, non-tender, no abnormal masses and no hepatosplenomegaly Musculoskeletal: no gait disturbance, no joint inflammation, no deforming arthritis Extremities: no edema and no cyanosis, patient's left arm is in a immobilizer due to rotator cuff tear from a previous fall. Neuro: grossly normal exam Results & Data ([facility]) Vital Signs (Past 12 Hours) Vital Signs Temp Pulse Pulse Resp BP Pulse Ox 10/26/19 09:45 93 H 10/26/19 07:43 36.5 C 87 17 138/89 99 10/26/19 04:14 122 H 10/26/19 04:08 36.5 C 122 H 18 122/77 96 10/26/19 00:00 37.1 C 110 H 17 106/56 L 96 Laboratory Results Laboratory Results - last 24 hr 10/26/19 10/26/19 10/26/19 02:46 02:46 02:46 WBC 7.67 RBC 2.98 L Hgb 9.8 L Hct 32.3 L MCV 108.4 H MCH 32.9 MCHC 30.3 L RDW Std Deviation 68.9 H RDW Coeff of Jayy 17.5 H Plt Count 195 MPV 10.0 Immature Gran % (Auto) 3.8 Neut % (Auto) 55.7 Lymph % (Auto) 29.6 Aurora % (Auto) 10.2 Eos % (Auto) 0.3 Baso % (Auto) 0.4 Neut # (Auto) 4.28 Lymph # (Auto) 2.27 Aurora # (Auto) 0.78 H Eos # (Auto) 0.02 Baso # (Auto) 0.03 Immature Gran # (Auto) 0.29 H Absolute Nucleated RBC 0.14 H Nucleated RBC % (auto) 1.8 APTT PTT Ratio Sodium 143 Potassium 4.4 Chloride 108 H Carbon Dioxide 29 Anion Gap 6.0 BUN 46 H Creatinine 0.96 Est Cr Clr Drug Dosing 53.8 Est GFR ( Amer) 68.0 Est GFR (Non-Af Amer) 58.7 BUN/Creatinine Ratio 47.8 H Glucose 103 H Calcium 8.1 L Magnesium 2.5 H Urine Color Urine Appearance Urine pH Ur Specific Mchenry Urine Protein Urine Glucose (UA) Urine Ketones Urine Blood Urine Nitrite Urine Bilirubin Urine Urobilinogen Ur Leukocyte Esterase Urine WBC (Auto) Urine RBC (Auto) U Hyaline Cast (Auto) U Epithel Cells (Auto) Urine Bacteria (Auto) Blood Type A Positive Antibody Screen NEGATIVE 10/26/19 10/26/19 10/26/19 02:46 05:58 07:55 WBC RBC Hgb 10.5 L Hct 33.7 L MCV MCH MCHC RDW Std Deviation RDW Coeff of Jayy Plt Count MPV Immature Gran % (Auto) Neut % (Auto) Lymph % (Auto) Aurora % (Auto) Eos % (Auto) Baso % (Auto) Neut # (Auto) Lymph # (Auto) Aurora # (Auto) Eos # (Auto) Baso # (Auto) Immature Gran # (Auto) Absolute Nucleated RBC Nucleated RBC % (auto) APTT 22.2 PTT Ratio 0.8 Sodium Potassium Chloride Carbon Dioxide Anion Gap BUN Creatinine Est Cr Clr Drug Dosing Est GFR ( Amer) Est GFR (Non-Af Amer) BUN/Creatinine Ratio Glucose Calcium Magnesium Urine Color Yellow Urine Appearance Clear Urine pH 5.5 Ur Specific Mchenry 1.023 Urine Protein Negative Urine Glucose (UA) Negative Urine Ketones Negative Urine Blood Negative Urine Nitrite Negative Urine Bilirubin Negative Urine Urobilinogen Negative Ur Leukocyte Esterase Trace H Urine WBC (Auto) 1-5 Urine RBC (Auto) 0-4 U Hyaline Cast (Auto) 0 U Epithel Cells (Auto) 5-10 H Urine Bacteria (Auto) Negative Blood Type Antibody Screen Medications Administered Current Inpatient Medications Cephalexin HCl (Cephalexin 500 Mg Cap) 500 mg PO BID [facility]; Protocol Stop: 10/31/19 20:59 Last Admin: 10/26/19 08:40 Dose: 500 mg Documented by: Diltiazem HCl (Diltiazem Hcl 180 Mg Capcr) 180 mg PO QAM [facility] Stop: 11/25/19 06:49 Last Admin: 10/26/19 07:10 Dose: 180 mg Documented by: Docusate Sodium (Docusate Sodium 100 Mg Cap) 100 mg PO BID [facility] Stop: 11/23/19 20:59 Last Admin: 10/26/19 08:40 Dose: 100 mg Documented by: Furosemide (Furosemide 40 Mg Tab) 40 mg PO DAILY [facility] Stop: 11/24/19 08:59 Last Admin: 10/26/19 08:39 Dose: 40 mg Documented by: Gabapentin (Gabapentin 300 Mg Cap) 900 mg PO HS [facility] Stop: 11/23/19 20:59 Last Admin: 10/25/19 19:34 Dose: 900 mg Documented by: Diltiazem HCl 125 mg/ Dextrose 125 mls @ 5 mls/hr IV .Q24H [facility]; Protocol Stop: 11/23/19 14:29 Last Titration: 10/26/19 05:01 Dose: Infused Documented by: Acetaminophen (Ofirmev) 1,000 mg in 100 mls @ 400 mls/hr IV Q8H PRN PRN Reason: Pain or Fever Stop: 10/29/19 07:51 Last Infusion: 10/26/19 09:32 Dose: Infused Documented by: Levothyroxine Sodium (Levothyroxine Sodium 50 Mcg Tablet) 50 mcg PO DAILYBB [facility] Stop: 11/24/19 06:29 Last Admin: 10/26/19 05:21 Dose: 50 mcg Documented by: Lisinopril (Lisinopril 10 Mg Tab) 10 mg PO DAILY [facility] Stop: 11/24/19 08:59 Last Admin: 10/26/19 08:39 Dose: 10 mg Documented by: Mercaptopurine (Mercaptopurine 50 Mg Tab) 50 mg PO DAILY [facility] Stop: 11/24/19 08:59 Last Admin: 10/26/19 08:38 Dose: 50 mg Documented by: Metoprolol Tartrate (Metoprolol Tartrate 50 Mg Tab) 50 mg PO BID [facility]IQUE Stop: 11/25/19 20:59 Metoprolol Tartrate (Metoprolol Tartrate 25 Mg Tab) 25 mg PO NOW STA Stop: 10/26/19 11:26 Multivitamins/Minerals (Calcium 600mg + Vit D 400 Iu Tab) 1 tab PO DAILY [facility]IQUE Stop: 11/24/19 08:59 Last Admin: 10/26/19 08:39 Dose: 1 tab Documented by: Oxycodone HCl (Oxycodone Hcl Ir 5 Mg Tab (Immediate Release)) 5 mg PO Q4H PRN PRN Reason: Pain Stop: 11/07/19 19:22 Last Admin: 10/26/19 06:11 Dose: 5 mg Documented by: Pantoprazole Sodium (Pantoprazole 40 Mg Tab) 40 mg PO BID [facility]IQUE Stop: 11/23/19 20:59 Last Admin: 10/26/19 08:41 Dose: 40 mg Documented by: Polyethylene Glycol (Polyethylene (Miralax) 17 Gm Pack) 17 gm PO DAILY PRN PRN Reason: Constipation Stop: 11/23/19 18:57 Prednisone (Prednisone 20 Mg Tab) 20 mg PO DAILY [facility]IQUE Stop: 11/24/19 08:59 Last Admin: 10/26/19 08:40 Dose: 20 mg Documented by: Rivaroxaban (Rivaroxaban 20 Mg Tab) 20 mg PO DAILY [facility] Stop: 11/24/19 08:59 Last Admin: 10/25/19 07:55 Dose: 20 mg Documented by: Trazodone HCl (Trazodone Hcl 50 Mg Tab) 50 mg PO HS UNIQUE Stop: 11/23/19 20:59 Last Admin: 10/25/19 19:35 Dose: 50 mg Documented by:
--- NOTE | 2019-10-26 12:40 | Orthopedic Consultation ---
Date of Consultation October 26, 2019 Assessment & Plan (1) Right knee pain: She has some abrasions over her knee where she fell. She has fair amount of ecchymoses everywhere in the leg secondary to her anticoagulation. I do not appreciate any fractures on her plain films. She does have fairly significant arthritic change in the medial compartment she is [id number] in this region with osteophyte formation off the medial femoral condyle medial tibial plateau. And I think she likely aggravated that when she fell. She may also have a mild hemarthrosis but nothing that would require to be drained. Ideally I would give her a cortisone injection but she recently had a cortisone injection to this knee about 3 weeks ago. So it is a little early to be able to repeat that injection. She needs to be about 3 months from her last injection before we could give her another cortisone injection. She may be weightbearing as tolerated and progress activities on the knee as tolerated. Please contact us if there is increasing pain. History of Present Illness Reason for Consultation: Right knee pain Attending Physician: Miguel Angel Bennett MD History of Present Illness Pt is 74 y/o F with PMH HTN, A-fib on Xarelto, autoimmune hepatitis, h/o parathyroid surgery presented to ER with c/o fall. Pt was at outpatient [facility] dermatology clinic today getting Mohs surgery to left face and left arm today. When she was leaving she states she was using her buttocks to open door and lost balance and fell hitting her head. She landed onto the right knee as well. She recently had a rotator cuff repair with Dr. Sandoval about 3 to 4 weeks ago. She is not complaining any increased pain there. She is complaini ng of pain in her right knee. She recently had a cortisone injection into this knee for arthritis about 3 weeks ago. She has been able to ambulate on the leg but with discomfort Allergies Allergy/AdvReac Type Severity Reaction Status Date / Time No Known Allergies Allergy Unverified 10/24/19 14:38 Home Medications Home Medications Medication Instructions Recorded Confirmed Type calcium carbonate-vitamin D3 1 tab PO DAILY 10/24/19 10/24/19 History [Calcium 600 + D(3)] cephalexin [Keflex] 500 mg PO BID 10/24/19 10/24/19 History docusate sodium 100 mg PO BID 10/24/19 10/24/19 History ergocalciferol (vitamin D2) 1,250 mcg PO WK 10/24/19 10/24/19 History furosemide [Lasix] 40 mg PO DAILY 10/24/19 10/24/19 History gabapentin 900 mg PO HS 10/24/19 10/24/19 History levothyroxine 75 mcg PO DAILY 10/24/19 10/24/19 History lisinopril 10 mg PO DAILY 10/24/19 10/24/19 History mercaptopurine 50 mg PO DAILY 10/24/19 10/25/19 History metoprolol tartrate 25 mg PO BID 10/24/19 10/24/19 History oxycodone 5 mg PO Q4H PRN 10/24/19 10/24/19 History pantoprazole [Protonix] 40 mg PO BID 10/24/19 10/24/19 History polyethylene glycol 3350 [Miralax] 17 g PO DAILY PRN 10/24/19 10/24/19 History prednisone 20 mg PO DAILY 10/24/19 10/24/19 History rivaroxaban [Xarelto] 20 mg PO DAILY 10/24/19 10/24/19 History trazodone 50 mg PO HS 10/24/19 10/24/19 History vitamin A 16,000 unit PO DAILY 10/24/19 10/24/19 History Patient History Medical History Atrial fibrillation Autoimmune hepatitis HTN (hypertension) Hypothyroidism Squamous cell carcinoma Surgical History H/O kyphoplasty H/O repair of rotator cuff History of appendectomy History of hysterectomy History of parathyroid surgery Status post Mohs surgery 10/24/2019 - face, left arm Family History Mother Abdominal aortic aneurysm Father Heart disease Other Lupus Thyroid disease Social History Smoking Status: Never smoker Hx Alcohol Use: No Hx Substance Use: No Preferred Language: Occitan Communication Ability: Effective Beliefs That Will Affect Care: None marital status: / Current Living Situation: Alone Other Information That Helps Us Care for You: No Feels Safe at Home: Yes Safety Concerns: Feels Safe At This Time Physical Exam Constitutional: WD/WN, vitals as above Neck: normal visual inspection Respiratory: normal respiratory effort Cardiovascular: Extremities: normal capillary refill Musculoskeletal: Left shoulder: There are well-healing arthroscopy portal incisions. No erythema. No drainage. No tenderness to palpation in proximal humerus Right hand: Has a Christoph wrap in place from her recent Mohs surgery Right knee: Mild abrasions anteriorly. Slight swelling intra-articularly. Mild tenderness to palpation of the medial joint line. Range of motion is 0 to 130 degrees. Multiple ecchymoses throughout the knee and leg. No significant tenderness to palpation of the bone of the proximal tibia or distal femur Results & Data ([facility]) Vital Signs (Past 12 Hours) Vital Signs Temp Pulse Pulse Resp BP Pulse Ox 10/26/19 11:32 36.5 C 92 H 18 130/87 94 10/26/19 09:45 93 H 10/26/19 07:43 36.5 C 87 17 138/89 99 10/26/19 04:14 122 H 10/26/19 04:08 36.5 C 122 H 18 122/77 96
--- NOTE | 2019-10-26 13:25 | Electrocardiogram Report ---
Test Reason : Blood Pressure : / mmHG Vent. Rate : 102 BPM Atrial Rate : 394 BPM P-R Int : 000 ms QRS Dur : 076 ms QT Int : 276 ms P-R-T Axes : 000 -24 -52 degrees QTc Int : 359 ms Atrial fibrillation with rapid ventricular response Nonspecific T wave abnormality Abnormal ECG When compared with ECG of 25-OCT-2019 06:52, Criteria for Anterior infarct are no longer Present Confirmed by Dionicio Ferrara ([id number]) on 10/26/2019 1:24:51 PM Referred By: REFERRED SELF Confirmed By:Dionicio Ferrara
[2019-10-26 14:10] LABS: Hematocrit (blood only) 36.6 % (37-47)
--- NOTE | 2019-10-26 18:31 | Hospitalist Progress Note ---
Date of Service October 26, 2019 Assessment & Plan (1) Atrial fibrillation with rapid ventricular response: Patient is a 74 yr female with H/O HTN, A-fib on Xarelto, autoimmune hepatitis, h/o parathyroid surgery presented with H/O fall and was found to be in Afib RVR. Afib RVR --CXR:Mild cardiomegaly. No acute process within the chest. --ECHO:Moderate Concentric LVH, EF:60-65%. No segmental left ventricular wall motion abnormality. Left atrium enlargement suggest diastolic dysfunction. Reduced RV systolic function. Mild MR. Mild TR. Severe biatrial enlargement. PA systolic pressure of 30 mmHg. --TSH:0.109, Normal Free T4 On Xarelto for anticoagulation Continue Cardizem, Metoprolol Received a dose of Digoxin Appreciate Cardiology Input. Monitor electrolytes and replace as needed Levothyroxine dose decreased to 50 mcg (From 75 mcg) Metoprolol dose increased to 50 mg twice daily Needs follow-up with cardiology upon discharge (2) Fall: (3) Abrasion of scalp without infection: Fall Likely Mechanical Fall Right Knee Pain--Ecchymosis, cannot rule out hemarthrosis. CT head:There is no hemorrhage, mass effect, or evidence of acute territorial ischemia by CT criteria. Neck CT:There is no evidence of fracture or subluxation involving the cervical spine. Osteopenia and spondylotic change as above. Right Knee X ray: No acute fracture or joint effusion of the right knee. Moderate osteoarthritis of the medial compartment. Chondrocalcinosis within the menisci. Soft tissue swelling. --PT/OT eval Fall Precautions Received cortisone injection to knee 3 weeks ago Appreciate orthopedics input Hemoglobin stable Plan to resume Xarelto if hemoglobin remains stable tomorrow Weightbearing as tolerated. (4) HTN (hypertension): Continue lisinopril, lasix, metoprolol Monitor (5) Squamous cell carcinoma: (6) Status post Mohs surgery: S/P excision to right hand on 10/21/19. S/P Mohs procedure to left arm and left face on 10/24/2019 Continue Keflex Continue outpatient follow up with dermatology (7) Hypothyroidism: H/O Hyperparathyroidism S/P Resection of Parathyroid Glands Was recently increased on Levothyroxine 2 months ago during hospitalization for rotator cuff tear TSH: 0.1, Free T4: 0.87 Decrease Levothyroxine from 75 to 50mcg Will need repeat thyroid function test as outpatient (8) Autoimmune hepatitis: Follows with GI in [place] Continue prednisone, mercaptopurine DVT Px On Xarelto Code Status Full Code Disposition PT OT prior to discharge Admission and Anticipated Discharge Date Admission Date: October 24, 2019 Subjective Patient is seen and examined at bedside Concern for hematuria overnight, patient denies any hematuria currently Denies dysuria, increased urinary frequency Continues to complain of right knee pain Also reports pain at surgical site on UE Denies chest pain, palpitations, SOB, dizziness, nausea, abd pain Heart rate is better Review of Systems Review of Systems: All systems reviewed & are unremarkable except as noted in HPI & below Physical Exam Physical Exam: Physical Exam: Vitals signs as noted above General Appearance:Moderately built and nourished, no apparent distress, Chronic Ill appearing Head: normocephalic, Atraumatic Eyes: normal inspection, EOMI Neck: supple, Trachea midline Respiratory/Chest: Normal breath sounds, CTA Cardiovascular: Irregularly Irregular, No murmur, +Tachycardia Abdomen/GI:Soft, Non tender, Bowel sounds present Extremities/Musculoskelatal:normal inspection, Chronic Venous stasis changes, 1- 2+ B/L LE edema B/L UE, left facial surgical dressing Neurologic/Psych:AAOX3, grossly no focal neurological deficits Skin: normal color, warm Results & Data Results & Data ([facility]) Vital Signs (Past 12 Hours) Vital Signs Temp Pulse Pulse Resp BP Pulse Ox 10/26/19 16:15 37.3 C 83 17 133/68 95 10/26/19 15:22 98 10/26/19 14:20 80 10/26/19 11:32 36.5 C 92 H 18 130/87 94 10/26/19 09:45 93 H 10/26/19 07:43 36.5 C 87 17 138/89 99 Laboratory Results Short CBC 10/26/19 10/26/19 10/26/19 Range/Units 02:46 07:55 14:02 WBC 7.67 (4.8-10.8) K/uL Hgb 9.8 L 10.5 L 11.0 L (12.0-16.0) g/dL Hct 32.3 L 33.7 L 36.6 L (37-47) % Plt Count 195 (130-400) K/uL BMP 08/29/20 02:46 Sodium 143 Potassium 4.4 Chloride 108 H Carbon Dioxide 29 BUN 46 H Creatinine 0.96 Glucose 103 H Calcium 8.1 L Urine 10/26/19 Range/Units 05:58 Urine Color Yellow Urine Appearance Clear (Clear) Urine pH 5.5 (4.5-7.5) Ur Specific [place] 1.023 (1.000-1.030) Urine Protein Negative (Negative) Urine Glucose (UA) Negative (Negative) (1) Fall Encounter type: initial encounter Qualified Code(s): W19.XXXA - Unspecified fall, initial encounter
[2019-10-26] MEDS: TRAZODONE HCL 50 MG TAB PO SCH (20:06)
[2019-10-26] MEDS: METOPROLOL TARTRATE 50 MG TAB PO SCH (20:06)
[2019-10-26] MEDS: GABAPENTIN 300 MG CAP PO SCH (20:06)
[2019-10-27] MEDS: OXYCODONE HCL IR 5 MG TAB (IMMEDIATE RELEASE) PO PRN ×5 (00:09→21:06)
[2019-10-27] MEDS: LEVOTHYROXINE SODIUM 50 MCG TABLET PO SCH (05:48)
[2019-10-27] MEDS: MERCAPTOPURINE 50 MG TAB PO SCH (08:04)
[2019-10-27] MEDS: predniSONE 20 MG TAB PO SCH (08:04)
[2019-10-27] MEDS: CALCIUM 600MG + VIT D 400 IU TAB PO SCH (08:04)
[2019-10-27] MEDS: dilTIAZem HCL 180 MG CAPCR PO SCH (08:04)
[2019-10-27] MEDS: lisinopriL 10 MG TAB PO SCH (08:04)
[2019-10-27] MEDS: FUROSEMIDE 40 MG TAB PO SCH (08:04)
[2019-10-27] MEDS: cephALEXin 500 MG CAP PO SCH ×2 (08:05→19:25)
[2019-10-27] MEDS: METOPROLOL TARTRATE 50 MG TAB PO SCH ×2 (08:05→19:25)
[2019-10-27] MEDS: PANTOprazole 40 MG TAB PO SCH ×2 (08:05→19:25)
[2019-10-27] MEDS: DOCUSATE SODIUM 100 MG CAP PO SCH ×2 (08:05→19:25)
[2019-10-27 08:18] LABS: Hematocrit (blood only) 34.1 % (37-47); Hemoglobin 10.9 g/dL (12.0-16.0); Mean Corpuscular Hemoglobin 33.7 pg (25-34); Mean Corpuscular Volume 105.6 fL (80-100); Nucleated RBC # (auto) 0.18 K/uL (0-0); Nucleated RBC % (auto) 2.4 %; Platelet Count 201 K/uL (130-400); RDW Standard Deviation 64.5 fL (36.4-46.3); Red Blood Count 3.23 M/uL (4.2-5.4); White Blood Count 7.44 K/uL (4.8-10.8)
[2019-10-27 08:35] LABS: Calcium 8.7 mg/dl (8.5-10.1); Creatinine Clr Calc Pharmacy 69.2 ml/min; Est GFR (African American) 94.7; Est GFR (Non-African American) 81.7; Magnesium 2.5 mg/dl (1.8-2.4); Potassium 4.2 mmol/L (3.5-5.1)
--- NOTE | 2019-10-27 08:52 | Cardiology Progress Note ---
Date of Service October 27, 2019 Assessment & Plan (1) Atrial fibrillation with rapid ventricular response: (2) HTN (hypertension): (3) Squamous cell carcinoma: (4) Autoimmune hepatitis: (5) Status post Mohs surgery: The patient has elevated heart rates this morning but according to nursing she just received her medications and had been doing well through the night. The patient may ultimately need to have an additional dose of diltiazem or split her current dose to twice daily. I will check back later today after her medications have been on board. Admission and Anticipated Discharge Date Admission Date: October 24, 2019 Subjective The patient is resting comfortably. Review of Systems Review of Systems: All systems reviewed & are unremarkable except as noted in HPI & below Nothing additional to add. Physical Exam Physical Exam: General: no acute distress and stated age Head: normocephalic, no masses, lesions, tenderness or abnormalities Eyes: conjunctiva are pink and non-injected, sclera clear Neck: supple, no adenopathy, no bruits, normal jugular venous pulse, no hepatojugular reflux Chest: normal shape and normal respiratory effort Lungs: clear to auscultation and percussion Cardiac Exam: -Irregular rate & rhythm, no murmurs gallops or rubs - normal S1, normal S2 Pulses: 2(+) throughout Abdomen: abdomen soft, non-tender, no abnormal masses and no hepatosplenomegaly Musculoskeletal: no gait disturbance, no joint inflammation, no deforming arthritis Extremities: no edema and no cyanosis, left arm in an immobilizer Neuro: grossly normal exam Results & Data ([facility]) Vital Signs (Past 12 Hours) Vital Signs Temp Pulse Resp BP Pulse Ox 10/27/19 07:11 36.6 C 87 18 108/77 91 10/27/19 04:09 36.6 C 102 H 18 100/73 94 10/26/19 23:47 36.8 C 84 16 104/64 94 Laboratory Results Laboratory Results - last 24 hr 10/26/19 10/27/19 10/27/19 14:02 07:43 07:43 WBC 7.44 RBC 3.23 L Hgb 11.0 L 10.9 L Hct 36.6 L 34.1 L MCV 105.6 H MCH 33.7 MCHC 32.0 RDW Std Deviation 64.5 H RDW Coeff of Jayy 17.0 H Plt Count 201 MPV 10.0 Absolute Nucleated RBC 0.18 H Nucleated RBC % (auto) 2.4 Sodium 141 Potassium 4.2 Chloride 105 Carbon Dioxide 30 Anion Gap 6.0 BUN 33 H Creatinine 0.73 Est Cr Clr Drug Dosing 69.2 Est GFR ( Amer) 94.7 Est GFR (Non-Af Amer) 81.7 BUN/Creatinine Ratio 45.0 H Glucose 79 Calcium 8.7 Magnesium 2.5 H Medications Administered Current Inpatient Medications Cephalexin HCl (Cephalexin 500 Mg Cap) 500 mg PO BID [facility]; Protocol Stop: 10/31/19 20:59 Last Admin: 10/27/19 08:05 Dose: 500 mg Documented by: Diltiazem HCl (Diltiazem Hcl 180 Mg Capcr) 180 mg PO QAM [facility] Stop: 11/25/19 06:49 Last Admin: 10/27/19 08:04 Dose: 180 mg Documented by: Docusate Sodium (Docusate Sodium 100 Mg Cap) 100 mg PO BID [facility] Stop: 11/23/19 20:59 Last Admin: 10/27/19 08:05 Dose: 100 mg Documented by: Furosemide (Furosemide 40 Mg Tab) 40 mg PO DAILY [facility] Stop: 11/24/19 08:59 Last Admin: 10/27/19 08:04 Dose: 40 mg Documented by: Gabapentin (Gabapentin 300 Mg Cap) 900 mg PO [facility] Stop: 11/23/19 20:59 Last Admin: 10/26/19 20:06 Dose: 900 mg Documented by: Acetaminophen (Ofirmev) 1,000 mg in 100 mls @ 400 mls/hr IV Q8H PRN PRN Reason: Pain or Fever Stop: 10/29/19 07:51 Last Infusion: 10/26/19 16:35 Dose: Infused Documented by: Levothyroxine Sodium (Levothyroxine Sodium 50 Mcg Tablet) [facility]: 11/24/19 06:29 Last Admin: 10/27/19 05:48 Dose: 50 mcg Documented by: Lisinopril (Lisinopril 10 Mg Tab) 10 mg PO DAILY [facility] Stop: 11/24/19 08:59 Last Admin: 10/27/19 08:04 Dose: 10 mg Documented by: Mercaptopurine (Mercaptopurine 50 Mg Tab) 50 mg PO DAILY [facility] Stop: 11/24/19 08:59 Last Admin: 10/27/19 08:04 Dose: 50 mg Documented by: Metoprolol Tartrate (Metoprolol Tartrate 50 Mg Tab) 50 mg PO BID [facility] Stop: 11/25/19 20:59 Last Admin: 10/27/19 08:05 Dose: 50 mg Documented by: Multivitamins/Minerals (Calcium 600mg + Vit D 400 Iu Tab) 1 tab PO DAILY [facility] Stop: 11/24/19 08:59 Last Admin: 10/27/19 08:04 Dose: 1 tab Documented by: Oxycodone HCl (Oxycodone Hcl Ir 5 Mg Tab (Immediate Release)) 5 mg PO Q4H PRN PRN Reason: Pain Stop: 11/07/19 19:22 Last Admin: 10/27/19 05:48 Dose: 5 mg Documented by: Pantoprazole Sodium (Pantoprazole 40 Mg Tab) 40 mg PO BID [facility] Stop: 11/23/19 20:59 Last Admin: 10/27/19 08:05 Dose: 40 mg Documented by: Polyethylene Glycol (Polyethylene (Miralax) 17 Gm Pack) 17 gm PO DAILY PRN PRN Reason: Constipation Stop: 11/23/19 18:57 Prednisone (Prednisone 20 Mg Tab) 20 mg PO DAILY [facility] Stop: 11/24/19 08:59 Last Admin: 10/27/19 08:04 Dose: 20 mg Documented by: Rivaroxaban (Rivaroxaban 20 Mg Tab) 20 mg PO DAILY [facility] Stop: 11/24/19 08:59 Last Admin: 10/25/19 07:55 Dose: 20 mg Documented by: Trazodone HCl (Trazodone Hcl 50 Mg Tab) 50 mg PO HS [facility] Stop: 11/23/19 20:59 Last Admin: 10/26/19 20:06 Dose: 50 mg Documented by:
[2019-10-27] MEDS: RIVAROXABAN 20 MG TAB PO SCH (10:44)
[2019-10-27] MEDS: POLYETHYLENE (MIRALAX) 17 GM PACK PO PRN (12:03)
--- NOTE | 2019-10-27 18:38 | Hospitalist Progress Note ---
Date of Service October 27, 2019 Assessment & Plan (1) Atrial fibrillation with rapid ventricular response: Patient is a 74 yr female with H/O HTN, A-fib on Xarelto, autoimmune hepatitis, h/o parathyroid surgery presented with H/O fall and was found to be in Afib RVR. Afib RVR --CXR:Mild cardiomegaly. No acute process within the chest. --ECHO:Moderate Concentric LVH, EF:60-65%. No segmental left ventricular wall motion abnormality. Left atrium enlargement suggest diastolic dysfunction. Reduced RV systolic function. Mild MR. Mild TR. Severe biatrial enlargement. PA systolic pressure of 30 mmHg. --TSH:0.109, Normal Free T4 Continue Cardizem, Metoprolol Appreciate Cardiology Input. Monitor electrolytes and replace as needed Levothyroxine dose decreased to 50 mcg (From 75 mcg) Metoprolol dose adjustment as per cardiology Needs follow-up with cardiology upon discharge Resume Xarelto for anticoagulation Monitor hemoglobin closely (2) Fall: (3) Abrasion of scalp without infection: Fall Likely Mechanical Fall Right Knee Pain--Ecchymosis, cannot rule out hemarthrosis. CT head:There is no hemorrhage, mass effect, or evidence of acute territorial ischemia by CT criteria. Neck CT:There is no evidence of fracture or subluxation involving the cervical spine. Osteopenia and spondylotic change as above. Right Knee X ray: No acute fracture or joint effusion of the right knee. Moderate osteoarthritis of the medial compartment. Chondrocalcinosis within the menisci. Soft tissue swelling. --PT/OT eval Fall Precautions Received cortisone injection to knee 3 weeks ago Appreciate orthopedics input Hemoglobin stable Plan to resume Xarelto if hemoglobin remains stable tomorrow Weightbearing as tolerated. May need rehab placement (4) HTN (hypertension): Continue lisinopril, lasix, metoprolol Monitor (5) Squamous cell carcinoma: (6) Status post Mohs surgery: S/P excision to right hand on 10/21/19. S/P Mohs procedure to left arm and left face on 10/24/2019 Continue Keflex Continue outpatient follow up with dermatology (7) Hypothyroidism: H/O Hyperparathyroidism S/P Resection of Parathyroid Glands Was recently increased on Levothyroxine 2 months ago during hospitalization for rotator cuff tear TSH: 0.1, Free T4: 0.87 Decrease Levothyroxine from 75 to 50mcg Will need repeat thyroid function test as outpatient (8) Autoimmune hepatitis: Follows with GI in [place] Continue prednisone, mercaptopurine DVT Px On Xarelto Code Status Full Code Disposition SNF when medically stable Case management consulted Admission and Anticipated Discharge Date Admission Date: October 24, 2019 Subjective Patient is seen and examined at bedside Still has right knee pain Hemoglobin stable Also reports pain at surgical site Denies chest pain, palpitations, SOB, dizziness, nausea, abd pain Prefers to be discharged to SNF Review of Systems Review of Systems: All systems reviewed & are unremarkable except as noted in HPI & below Physical Exam Physical Exam: Physical Exam: Vitals signs as noted above General Appearance:Moderately built and nourished, no apparent distress, Chronic Ill appearing Head: normocephalic, Atraumatic Eyes: normal inspection, EOMI Neck: supple, Trachea midline Respiratory/Chest: Normal breath sounds, CTA Cardiovascular: Irregularly Irregular, No murmur, +Tachycardia Abdomen/GI:Soft, Non tender, Bowel sounds present Extremities/Musculoskelatal:normal inspection, Chronic Venous stasis changes, 1- 2+ B/L LE edema B/L UE, left facial surgical dressing Neurologic/Psych:AAOX3, grossly no focal neurological deficits Skin: normal color, warm Results & Data Results & Data ([facility]) Vital Signs (Past 12 Hours) Vital Signs Temp Pulse Pulse Pulse Resp BP Pulse Ox 10/27/19 15:45 36.7 C 84 19 93/62 L 93 10/27/19 14:54 93 H 10/27/19 12:00 36.7 C 91 H 18 87/58 L 97 10/27/19 07:11 36.6 C 87 18 108/77 91 Laboratory Results Short CBC 10/27/19 Range/Units 07:43 WBC 7.44 (4.8-10.8) K/uL Hgb 10.9 L (12.0-16.0) g/dL Hct 34.1 L (37-47) % Plt Count 201 (130-400) K/uL BMP 10/27/19 07:43 Sodium 141 Potassium 4.2 Chloride 105 Carbon Dioxide 30 BUN 33 H Creatinine 0.73 Glucose 79 Calcium 8.7 (1) Fall Encounter type: initial encounter Qualified Code(s): W19.XXXA - Unspecified fall, initial encounter
[2019-10-27] MEDS: GABAPENTIN 300 MG CAP PO SCH (19:25)
[2019-10-27] MEDS: TRAZODONE HCL 50 MG TAB PO SCH (19:25)
[2019-10-28] MEDS: OXYCODONE HCL IR 5 MG TAB (IMMEDIATE RELEASE) PO PRN ×3 (01:33→11:35)
[2019-10-28] MEDS: LEVOTHYROXINE SODIUM 50 MCG TABLET PO SCH (06:10)
[2019-10-28 07:18] LABS: Hemoglobin 10.7 g/dL (12.0-16.0)
[2019-10-28 07:51] LABS: Potassium 4.5 mmol/L (3.5-5.1)
[2019-10-28 07:52] LABS: BUN Creatinine Ratio 37.1 (10-20); Calcium 8.2 mg/dl (8.5-10.1); Creatinine Clr Calc Pharmacy 67.1 ml/min; Est GFR (African American) 91.7; Est GFR (Non-African American) 79.1
[2019-10-28] MEDS: dilTIAZem HCL 180 MG CAPCR PO SCH (08:36)
[2019-10-28] MEDS: DOCUSATE SODIUM 100 MG CAP PO SCH (08:36)
[2019-10-28] MEDS: cephALEXin 500 MG CAP PO SCH (08:36)
[2019-10-28] MEDS: CALCIUM 600MG + VIT D 400 IU TAB PO SCH (08:36)
[2019-10-28] MEDS: FUROSEMIDE 40 MG TAB PO SCH (08:37)
[2019-10-28] MEDS: lisinopriL 10 MG TAB PO SCH (08:37)
[2019-10-28] MEDS: METOPROLOL TARTRATE 50 MG TAB PO SCH (08:37)
[2019-10-28] MEDS: PANTOprazole 40 MG TAB PO SCH (08:37)
[2019-10-28] MEDS: MERCAPTOPURINE 50 MG TAB PO SCH (08:37)
[2019-10-28] MEDS: predniSONE 20 MG TAB PO SCH (08:37)
[2019-10-28] MEDS: RIVAROXABAN 20 MG TAB PO SCH (11:36)
[2019-10-28] MEDS: POLYETHYLENE (MIRALAX) 17 GM PACK PO PRN (11:36)
--- NOTE | 2019-10-28 11:45 | Cardiology Progress Note ---
Date of Service October 28, 2019 Assessment & Plan (1) Atrial fibrillation with rapid ventricular response: (2) HTN (hypertension): (3) Squamous cell carcinoma: (4) Autoimmune hepatitis: (5) Status post Mohs surgery: The patient is comfortable and her heart rates are acceptable with her p ersistent atrial fibrillation. The patient does have a piece hand at [facility] which she can return to for follow-up however, if she so wishes she can also see us at our [place] office after discharge. Admission and Anticipated Discharge Date Admission Date: October 24, 2019 Subjective Patient is sitting in a chair comfortably enjoying lunch. Review of Systems Review of Systems: All systems reviewed & are unremarkable except as noted in HPI & below Nothing additional to add Physical Exam Physical Exam: General: no acute distress and stated age Head: normocephalic, no masses, lesions, tenderness or abnormalities Eyes: conjunctiva are pink and non-injected, sclera clear Neck: supple, no adenopathy, no bruits, normal jugular venous pulse, no hepatojugular reflux Chest: normal shape and normal respiratory effort Lungs: clear to auscultation and percussion Cardiac Exam: - irregular rate & rhythm, no murmurs gallops or rubs - normal S1, normal S2 Pulses: 2(+) throughout Abdomen: abdomen soft, non-tender, no abnormal masses and no hepatosplenomegaly Musculoskeletal: no gait disturbance, no joint inflammation, no deforming arthritis Extremities: no edema and no cyanosis Neuro: grossly normal exam Results & Data ([facility]) Vital Signs (Past 12 Hours) Vital Signs Temp Pulse Pulse Pulse Resp BP Pulse Ox 10/28/19 08:00 88 10/28/19 07:52 36.6 C 102 H 19 121/82 93 10/28/19 03:56 37.0 C 81 18 116/73 93 10/28/19 00:20 36.9 C 85 18 107/73 95 Laboratory Results Laboratory Results - last 24 hr 10/28/19 10/28/19 06:34 06:34 Hgb 10.7 L Hct 34.0 L Sodium 139 Potassium 4.5 Chloride 103 Carbon Dioxide 30 Anion Gap 6.0 BUN 28 H Creatinine 0.75 Est Cr Clr Drug Dosing 67.1 Est GFR ( Amer) 91.7 Est GFR (Non-Af Amer) 79.1 BUN/Creatinine Ratio 37.1 H Glucose 76 Calcium 8.2 L Medications Administered Current Inpatient Medications Cephalexin HCl (Cephalexin 500 Mg Cap) 500 mg PO BID [facility]; Protocol Stop: 10/31/19 20:59 Last Admin: 10/28/19 08:36 Dose: 500 mg Documented by: Diltiazem HCl (Diltiazem Hcl 180 Mg Capcr) 180 mg PO QAM [facility] Stop: 11/25/19 06:49 Last Admin: 10/28/19 08:36 Dose: 180 mg Documented by: Docusate Sodium (Docusate Sodium 100 Mg Cap) 100 mg PO BID [facility] Stop: 11/23/19 20:59 Last Admin: 10/28/19 08:36 Dose: 100 mg Documented by: Furosemide (Furosemide 40 Mg Tab) 40 mg PO DAILY [facility] Stop: 11/24/19 08:59 Last Admin: 10/28/19 08:37 Dose: 40 mg Documented by: Gabapentin (Gabapentin 300 Mg Cap) 900 mg PO HS [facility] Stop: 11/23/19 20:59 Last Admin: 10/27/19 19:25 Dose: 900 mg Documented by: Acetaminophen (Ofirmev) 1,000 mg in 100 mls @ 400 mls/hr IV Q8H PRN PRN Reason: Pain or Fever Stop: 10/29/19 07:51 Last Infusion: 10/26/19 16:35 Dose: Infused Documented by: Levothyroxine Sodium (Levothyroxine Sodium 50 Mcg Tablet) 50 mcg PO DAILYBB [facility] Stop: 11/24/19 06:29 Last Admin: 10/28/19 06:10 Dose: 50 mcg Documented by: Lisinopril (Lisinopril 10 Mg Tab) 10 mg PO DAILY [facility] Stop: 11/24/19 08:59 Last Admin: 10/28/19 08:37 Dose: 10 mg Documented by: Mercaptopurine (Mercaptopurine 50 Mg Tab) 50 mg PO DAILY [facility] Stop: 11/24/19 08:59 Last Admin: 10/28/19 08:37 Dose: 50 mg Documented by: Metoprolol Tartrate (Metoprolol Tartrate 50 Mg Tab) 50 mg PO BID [facility] Stop: 11/25/19 20:59 Last Admin: 10/28/19 08:37 Dose: 50 mg Documented by: Multivitamins/Minerals (Calcium 600mg + Vit D 400 Iu Tab) 1 tab PO DAILY [facility] Stop: 11/24/19 08:59 Last Admin: 10/28/19 08:36 Dose: 1 tab Documented by: Oxycodone HCl (Oxycodone Hcl Ir 5 Mg Tab (Immediate Release)) 5 mg PO Q4H PRN PRN Reason: Pain Stop: 11/07/19 19:22 Last Admin: 10/28/19 11:35 Dose: 5 mg Documented by: Pantoprazole Sodium (Pantoprazole 40 Mg Tab) 40 mg PO BID [facility] Stop: 11/23/19 20:59 Last Admin: 10/28/19 08:37 Dose: 40 mg Documented by: Polyethylene Glycol (Polyethylene (Miralax) 17 Gm Pack) 17 gm PO DAILY PRN PRN Reason: Constipation Stop: 11/23/19 18:57 Last Admin: 10/28/19 11:36 Dose: 17 gm Documented by: Prednisone (Prednisone 20 Mg Tab) 20 mg PO DAILY [facility] Stop: 11/24/19 08:59 Last Admin: 10/28/19 08:37 Dose: 20 mg Documented by: Rivaroxaban (Rivaroxaban 20 Mg Tab) 20 mg PO DAILY [facility] Stop: 11/24/19 08:59 Last Admin: 10/28/19 11:36 Dose: 20 mg Documented by: Trazodone HCl (Trazodone Hcl 50 Mg Tab) 50 mg PO HS [facility] Stop: 11/23/19 20:59 Last Admin: 10/27/19 19:25 Dose: 50 mg Documented by:
--- NOTE | 2019-10-28 13:46 | Hospitalist Progress Note ---
Date of Service October 28, 2019 Assessment & Plan (1) Atrial fibrillation with rapid ventricular response: Patient is a 74 yr female with H/O HTN, A-fib on Xarelto, autoimmune hepatitis, h/o parathyroid surgery presented with H/O fall and was found to be in Afib RVR. Afib RVR --CXR:Mild cardiomegaly. No acute process within the chest. --ECHO:Moderate Concentric LVH, EF:60-65%. No segmental left ventricular wall motion abnormality. Left atrium enlargement suggest diastolic dysfunction. Reduced RV systolic function. Mild MR. Mild TR. Severe biatrial enlargement. PA systolic pressure of 30 mmHg. --TSH:0.109, Normal Free T4 Continue Cardizem, Metoprolol Appreciate Cardiology Input. Monitor electrolytes and replace as needed Levothyroxine dose decreased to 50 mcg (From 75 mcg) Continue Metoprolol 50mg BID Needs follow-up with cardiology upon discharge Continue Xarelto for anticoagulation (2) Fall: (3) Abrasion of scalp without infection: Fall Likely Mechanical Fall Right Knee Pain--Ecchymosis, cannot rule out hemarthrosis. CT head:There is no hemorrhage, mass effect, or evidence of acute territorial ischemia by CT criteria. Neck CT:There is no evidence of fracture or subluxation involving the cervical spine. Osteopenia and spondylotic change as above. Right Knee X ray: No acute fracture or joint effusion of the right knee. Moderate osteoarthritis of the medial compartment. Chondrocalcinosis within the menisci. Soft tissue swelling. --PT/OT eval Fall Precautions Received cortisone injection to knee 3 weeks ago Appreciate orthopedics input Hemoglobin stable Weightbearing as tolerated. PT/OT eval done Refused Rehab placement. Explained the risks of fall while on anticoagulation. Patient understands the risks, and is persistent in going home. (4) HTN (hypertension): Continue lisinopril, lasix, metoprolol Monitor (5) Squamous cell carcinoma: (6) Status post Mohs surgery: S/P excision to right hand on 10/21/19. S/P Mohs procedure to left arm and left face on 10/24/2019 Continue Keflex Continue outpatient follow up with dermatology (7) Hypothyroidism: H/O Hyperparathyroidism S/P Resection of Parathyroid Glands Was recently increased on Levothyroxine 2 months ago during hospitalization for rotator cuff tear TSH: 0.1, Free T4: 0.87 Decrease Levothyroxine from 75 to 50mcg Will need repeat thyroid function test as outpatient (8) Autoimmune hepatitis: Follows with GI in [place] Continue prednisone, mercaptopurine DVT Px On Xarelto Code Status Full Code Disposition Refused SNF placement Case management on board Plan to discharge home with home health services. Admission and Anticipated Discharge Date Admission Date: October 24, 2019 Subjective Patient is seen and examined at bedside No new complaints Refuses rehab placement Discussed with cardiology today. Right knee pain improved Denies chest pain, palpitations, SOB, dizziness, nausea, abd pain Review of Systems Review of Systems: All systems reviewed & are unremarkable except as noted in HPI & below Physical Exam Physical Exam: Physical Exam: Vitals signs as noted above General Appearance:Moderately built and nourished, no apparent distress, Chronic Ill appearing Head: normocephalic, Atraumatic Eyes: normal inspection, EOMI Neck: supple, Trachea midline Respiratory/Chest: Normal breath sounds, CTA Cardiovascular: Irregularly Irregular, No murmur Abdomen/GI:Soft, Non tender, Bowel sounds present Extremities/Musculoskelatal:normal inspection, Chronic Venous stasis changes, 1- 2+ B/L LE edema B/L UE, left facial surgical dressing, B/L Leg seborrheic keratosis Neurologic/Psych:AAOX3, grossly no focal neurological deficits Skin: normal color, warm Results & Data Results & Data ([facility]) Vital Signs (Past 12 Hours) Vital Signs Temp Pulse Pulse Pulse Resp BP Pulse Ox 10/28/19 11:59 36.6 C 74 18 113/69 93 10/28/19 08:00 88 10/28/19 07:52 36.6 C 102 H 19 121/82 93 10/28/19 03:56 37.0 C 81 18 116/73 93 Laboratory Results Short CBC 10/28/19 Range/Units 06:34 Hgb 10.7 L (12.0-16.0) g/dL Hct 34.0 L (37-47) % BMP 10/28/19 06:34 Sodium 139 Potassium 4.5 Chloride 103 Carbon Dioxide 30 BUN 28 H Creatinine 0.75 Glucose 76 Calcium 8.2 L (1) Fall Encounter type: initial encounter Qualified Code(s): W19.XXXA - Unspecified fall, initial encounter
--- NOTE | 2019-10-28 13:59 | Discharge Summary ---
Date of Service October 28, 2019 Admission HPI Per Admitting Provider Pt is 74 y/o F with PMH HTN, A-fib on Xarelto, autoimmune hepatitis, h/o parathyroid surgery presented to ER with c/o fall. Pt was at outpatient [facility] dermatology clinic today getting Mohs surgery to left face and left arm today. When she was leaving she states she was using her buttocks to open door and lost balance and fell hitting her head. Denies any LOC. Denies any dizziness, palpitations, CP, SOB or other symptoms prior to fall. Pt was referred to ER secondary to falling and hitting her head and being on Xarelto. In ER pt was found to be in A-fib RVR. Pt reports h/o A-fib x 6-8 months that was found pre-op. She reports recent left rotator cuff repair and recent kyphoplasty and states had elevated heart rates. She reports h/o elevated HR while being in a [facility] and had her meds adjusted (unsure of what medications) and at that time had dizziness causing a fall. Pt states since her medications have been adjusted and hasn't had dizziness or palpitations and when has been at outpatient dr offices her HR have been controlled. Pt follows with [facility] and states most recently her HR have been below 100. She does report a h/o nodules -she thinks to her parathyroid glands and reports had biopsy and parathyroid surgery with reported benign biopsy. Her PCP noted her TSH to be low approx 1 month ago and per pt since her HR was controlled was going to repeat labs in 1-2 months. Has pain to left shoulder from recent rotator cuff repair, denies any increased pain or other extremity pain from fall. C/O abrasion to right scalp from fall that was initially bleeding but blee ding controlled at this time. Having mild KIM after fall. Reports chronic BLE edema, seems a little more swollen today. Reports took her lasix this morning. Denies fever/chills, diaphoresis, N/V/D/C, dizziness, syncope, vision changes, neck pain, CP, SOB, orthopnea, palpitations, cough, sore throat, choking, otalgia, rhinorrhea, abdominal pain, paresthesias, weakness, extremity weakness, rashes, urinary symptoms. In ER pt CT head and C-spine negative. Her initial HR 130's. She was given Lopressor 5mg IV, Cardizem 10mg IV and on Cardizem drip with rates varying 108- 140. Pt asymptomatic. Admission Exam Per Admitting Provider Physical Exam Physical Exam: General: no distress, obese Head: normocephalic, right lateral scalp with abrasion without active bleeding Eyes: PERRL, EOM's intact, conjunctiva non-injected, anicteric ENT: normal inspection external ears, nose, mucous membranes moist Neck: supple, trachea midline, non-tender, ROM intact Lungs: clear, no respiratory distress, no wheezing/rhonchi/rales CV:Irregularly irregular, rates 110-136, no murmur appreciated, 2+ pretibial edema Abd: normal BS, soft, non-tender Ext: no cyanosis, no calf tenderness Neuro: A&O x 3, no focal deficits noted, normal affect Skin: warm, dry; left face with bulky dressing in place from Mohs procedure today, left arm with dressing in place from Mohs procedure today, left hand with JAIDA wrap in place from skin excision several days ago, JAIDA wrap has dried blood noted on outside of dressing from her scalp bleeding Principal Diagnosis Atrial fibrillation with rapid ventricular response Mechanical Fall Discharge Data Allergies Allergy/AdvReac Type Severity Reaction Status Date / Time No Known Allergies Allergy Unverified 10/24/19 14:38 Consultations 10/24/19 15:32 ED Decision to Admit Stat 10/24/19 18:58 Consult Cardiology Routine 10/26/19 07:49 Consult Orthopedic Surgery Routine 10/27/19 10:44 Consult Case Management - Discharge Planning Routine Procedures Performed --CXR:Mild cardiomegaly. No acute process within the chest. --ECHO:Moderate Concentric LVH, EF:60-65%. No segmental left ventricular wall motion abnormality. Left atrium enlargement suggest diastolic dysfunction. Reduced RV systolic function. Mild MR. Mild TR. Severe biatrial enlargement. PA systolic pressure of 30 mmHg. --CT head:There is no hemorrhage, mass effect, or evidence of acute territorial ischemia by CT criteria. --Neck CT:There is no evidence of fracture or subluxation involving the cervical spine. Osteopenia and spondylotic change as above. --Right Knee X ray: No acute fracture or joint effusion of the right knee. Moderate osteoarthritis of the medial compartment. Chondrocalcinosis within the menisci. Soft tissue swelling. Ordered Studies 10/24/19 13:05 CT cervical spine wo con Stat CT head/brain wo con Stat Hospital Course (1) Atrial fibrillation with rapid ventricular response: Patient is a 74 yr female with H/O HTN, A-fib on Xarelto, autoimmune hepatitis, h/o parathyroid surgery presented with H/O fall and was found to be in Afib RVR. Afib RVR --CXR:Mild cardiomegaly. No acute process within the chest. --ECHO:Moderate Concentric LVH, EF:60-65%. No segmental left ventricular wall motion abnormality. Left atrium enlargement suggest diastolic dysfunction. Reduced RV systolic function. Mild MR. Mild TR. Severe biatrial enlargement. PA systolic pressure of 30 mmHg. --TSH:0.109, Normal Free T4 Continue Cardizem, Metoprolol Appreciate Cardiology Input. Monitor electrolytes and replace as needed Levothyroxine dose decreased to 50 mcg (From 75 mcg) Continue Metoprolol 50mg BID Needs follow-up with cardiology upon discharge Continue Xarelto for anticoagulation (2) Fall: (3) Abrasion of scalp without infection: Fall Likely Mechanical Fall Right Knee Pain--Ecchymosis, cannot rule out hemarthrosis. CT head:There is no hemorrhage, mass effect, or evidence of acute territorial ischemia by CT criteria. Neck CT:There is no evidence of fracture or subluxation involving the cervical spine. Osteopenia and spondylotic change as above. Right Knee X ray: No acute fracture or joint effusion of the right knee. Moderate osteoarthritis of the medial compartment. Chondrocalcinosis within the menisci. Soft tissue swelling. --PT/OT eval Fall Precautions Received cortisone injection to knee 3 weeks ago Appreciate orthopedics input Hemoglobin stable Weightbearing as tolerated. PT/OT eval done Refused Rehab placement. Explained the risks of fall while on anticoagulation. Patient understands the risks, and is persistent in going home. (4) HTN (hypertension): Continue lisinopril, lasix, metoprolol Monitor (5) Squamous cell carcinoma: (6) Status post Mohs surgery: S/P excision to right hand on 10/21/19. S/P Mohs procedure to left arm and left face on 10/24/2019 Continue Keflex Continue outpatient follow up with dermatology (7) Hypothyroidism: H/O Hyperparathyroidism S/P Resection of Parathyroid Glands Was recently increased on Levothyroxine 2 months ago during hospitalization for rotator cuff tear TSH: 0.1, Free T4: 0.87 Decrease Levothyroxine from 75 to 50mcg Will need repeat thyroid function test as outpatient (8) Autoimmune hepatitis: Follows with GI in [place] Continue prednisone, mercaptopurine DVT Px On Xarelto Code Status Full Code Disposition Refused SNF placement Case management on board Plan to discharge home with home health services. Total Time Total Time Spent Total Time Spent (In Minutes): 40 minutes Total Time Includes: Examination of the Patient, Discharge Planning, Medication Reconciliation, Communication With Other Providers and Other Discharge Plan Discharge Items Patient Disposition: Home - Home Health Services Reason For Visit: A-FIB RVR Discharge Diagnosis: Atrial fibrillation with rapid ventricular response Mechanical Fall Activity: Resume your previous activity Exercise/Sports: Gradually increase as tolerated Non-emergency contact: Primary Care Provider and [employer] Administrator Call non-emergency contact if: you have any medication questions, your symptoms worsen, your pain is not controlled, your pain is worsening, your pain is unusual for you, your pain is concerning for you, you have a fever, your wound has increased redness, your wound has increased drainage and your wound pain has increased Follow-up/Referrals: Toney Gastelum PA-C [Primary Care Provider] - 10/30/19 9:20 am Diet: Heart Healthy Addtl Attending Provider Instructions: Follow-up with your primary care physician in 1 week Follow-up with your hand drawer in in 1-2 weeks as advised Medication changes 1) your levothyroxine dose is decreased to 50 mcg daily 2) you are started on diltiazem 180 mg daily 3) your metoprolol is increased to 50 mg twice a day. Get repeat Thyroid function test in 4-6 weeks as outpatient and follow-up with your primary care physician for further adjustment of your levothyroxine dose. Seek immediate medical attention if your symptoms reoccur or worsen Pending Studies at Discharge: No Stand-Alone Forms: My [facility], Smoking Cessation Medications and DC Order Prescriptions: New metoprolol tartrate 50 mg Tablet 50 mg PO BID Qty: 60 RF: 0 diltiazem HCl 180 mg Capsule,Extended Release 24hr 180 mg PO QAM Qty: 30 RF: 0 levothyroxine [Synthroid] 50 mcg Tablet 50 mcg PO DAILYBB Qty: 30 RF: 0 Continued vitamin A 8,000 unit Capsule 16,000 unit PO DAILY RF: 0 trazodone 50 mg Tablet 50 mg PO HS RF: 0 lisinopril 20 mg Tablet 10 mg PO DAILY RF: 0 pantoprazole [Protonix] 40 mg Tablet,Delayed Release (Dr/Ec) 40 mg PO BID RF: 0 docusate sodium 100 mg Capsule 100 mg PO BID RF: 0 gabapentin 300 mg Capsule 900 mg PO HS RF: 0 ergocalciferol (vitamin D2) 1,250 mcg (50,000 unit) Capsule 1,250 mcg PO WK RF: 0 oxycodone 5 mg Tablet 5 mg PO Q4H PRN (Reason: Pain) RF: 0 calcium carbonate-vitamin D3 [Calcium 600 + D(3)] 600 mg(1,500mg) -400 unit Tablet 1 tab PO DAILY RF: 0 furosemide [Lasix] 40 mg Tablet 40 mg PO DAILY RF: 0 polyethylene glycol 3350 [Miralax] 17 gram Powder In Packet 17 g PO DAILY PRN (Reason: Constipation) RF: 0 prednisone 20 mg Tablet 20 mg PO DAILY RF: 0 cephalexin [Keflex] 500 mg Capsule 500 mg PO BID RF: 0 mercaptopurine 50 mg Tablet 50 mg PO DAILY RF: 0 Xarelto 20 mg Tablet 20 mg PO DAILY RF: 0 Discontinued levothyroxine 75 mcg Tablet 75 mcg PO DAILY RF: 0 metoprolol tartrate 25 mg Tablet 25 mg PO BID RF: 0 Discharge Orders: Discharge Order (Routine); Ordered 10/28/19 Ordered By: Miguel Angel Bennett Admission Data Admit Date/Time: 10/24/19 16:41 Attending Provider: Miguel Angel Bennett Admit Provider: Breezy Durham Primary Care Provider: Toney Gastelum Other Providers: Breezy Durham ; [facility] ; Eyal Frazier ; Mik Roque ; [facility] Other Interventions: Discharge Summary Assessment (RN) Last Done: 10/28/19 14:17
== END 2019-10-28 16:30 | disposition home health service (06) | DRG 309 ==
LOC: ED 12:31 → 2E 16:41 → SUATTDRO 16:41 → 2E 18:14